=== PATIENT | female | born 1945 | race Caucasian/White ===

== ENCOUNTER 2016-06-28 11:14 | Emergency (ER) | payer MEDICARE ==
[~2016-06-28] VITALS: Ht 170.2 cm; Wt 61.5 kg
[~2016-06-28 11:14] MED LIST: ALPR0.5T99 PO; DARV PO; LEVO25TA36 PO; LORT5TAB PO; MEDR4PAK3 PO; VICO7.5T PO
[2016-06-28 11:29] VITALS: BP 118/68; PULSE 92; RESP 18; TEMP 98.6; O2SAT 94
[2016-06-28] MEDS ORDERED: SODIUM CHLOR 0.9% 1000 ML INJ 1,000 ML IV ONE ×2 (11:43→13:00)
[2016-06-28] MEDS ORDERED: ONDANSETRON HCL 4 MG/2 ML VIAL IVP ONE (11:45)
[2016-06-28] MEDS ORDERED: SODIUM CHLORIDE 0.9% FLUSH 10 ML FLUSH IVF PRN (11:45)
--- NOTE | 2016-06-28 11:56 | PD ---
HPI . Vomiting and diarrhea Chief Complaint: GI Complaint Time Seen by Provider: 11:43 Travel History International Travel<30 days: No Contact w/Intl Traveler<30days: No Traveled to known affect area: No History of Present Illness HPI Patient presents with a two-week history of vomiting and diarrhea. She reports approximately 4-5 episodes of emesis which always seems to occur at night. She reports about 6 episodes of diarrhea per day. She denies fever. She denies abdominal pain. She does report decreased urinary output and hesitancy. Denies recent antibiotic use. [id number]: Abdominal SEVERITY: 4-5 episodes of emesis and 6 episodes of diarrhea per day DURATION: 2 weeks TIMING: Continuous CONTEXT: No known sick exposures and no recent antibiotics ASSOCIATED SYMPTOMS: No associated fever or abdominal pain PFSH Past Medical History Anxiety: Yes High Cholesterol: Yes Cerebrovascular Accident: Yes (TIA X2) Diminished Hearing: No Genitourinary: Yes (HX OF FREQUENT UTI'S) Thyroid Disease: Yes Tetanus Vaccination: > 5 Years Influenza Vaccination: No ?: Not Past Surgical History Appendectomy: Yes Cholecystectomy: Yes Gynecologic Surgery: Yes (UTERINE PROLAPSE) Hysterectomy: Yes Social History Alcohol Use: No Tobacco Use: No Substance Use: No Allergies-Medications (Allergen,Severity, Reaction): Coded Allergies: No Known Allergies (Verified , 06/28/16) Reported Meds & Prescriptions Reported Meds & Active Scripts Active Reported Dilantin (Phenytoin Extended) 30 Mg Cap 90 Mg PO TID Percocet (Oxycodone-Acetaminophen) 7.5-325 mg Tab 1 Tab PO Q4H PRN Pravastatin 20 Mg Tab 20 Mg PO DAILY Synthroid (Levothyroxine Sodium) 100 Mcg Tab 100 Mcg PO DAILY Review of Systems Except as stated in HPI: all other systems reviewed are Neg General / Constitutional: No: Fever, Chills Gastrointestinal: Positive: Nausea, Vomiting, Diarrhea, No: Abdominal Pain Genitourinary: Positive: Decreased Urinary Output, Hesitancy Physical Exam Narrative GENERAL: Elderly woman who is in no acute distress. SKIN: Warm and dry. HEAD: Atraumatic. Normocephalic. EYES: Pupils equal and round. ENT: No nasal bleeding or discharge. Mucous membranes pink. Slightly dry. NECK: Trachea midline. Neck is supple. CARDIOVASCULAR: Regular rate and rhythm. Heart sounds are normal. RESPIRATORY: No accessory muscle use. Lungs are clear with full air movement throughout. GASTROINTESTINAL: Abdomen soft, non-tender, nondistended. MUSCULOSKELETAL: No obvious deformities. No edema. NEUROLOGICAL: Awake and alert. No obvious cranial nerve deficits. Motor grossly within normal limits. Normal speech. PSYCHIATRIC: Appropriate mood and affect; insight and judgment normal. Data Data Last Documented VS Vital Signs Date Time Temp Pulse Resp B/P Pulse Ox O2 Delivery O2 Flow Rate FiO2 06/28/16 13:43 62 18 107/46 96 Room Air 06/28/16 11:29 98.6 Orders Complete Blood Count With Diff (06/28/16 11:43) Comprehensive Metabolic Panel (06/28/16 11:43) Urinalysis - C+S If Indicated (06/28/16 11:43) Iv Access Insert/Monitor (06/28/16 11:43) Ecg Monitoring (06/28/16 11:43) Oximetry (06/28/16 11:43) Ondansetron Inj (Zofran Inj) (06/28/16 11:45) Sodium Chlor 0.9% 1000 Ml Inj (Ns 1000 M (06/28/16 11:43) Sodium Chloride 0.9% Flush (Ns Flush) (06/28/16 11:45) C Diff Toxin Pcr (06/28/16 11:43) Enteric Path (Stool) (06/28/16 11:43) Electrocardiogram (06/28/16 ) Troponin I (06/28/16 11:43) Urine Culture (06/28/16 11:50) Ceftriaxone Inj (Rocephin Inj) (06/28/16 12:45) Sodium Chlor 0.9% 1000 Ml Inj (Ns 1000 M (06/28/16 13:00) Labs Laboratory Tests Test 06/28/16 06/28/16 11:50 12:07 Urine Collection Type CLEAN CATCH Urine Color YELLOW Urine Turbidity CLOUDY Urine pH 6.0 Urine Specific [place] 1.016 Urine Protein 100 mg/dL Urine Glucose (UA) NEG mg/dL Urine Ketones NEG mg/dL Urine Occult Blood MOD Urine Nitrite POS Urine Bilirubin NEG Urine Leukocyte Esterase MOD Urine WBC INNUM /hpf Urine WBC Clumps FEW Urine Bacteria MANY /hpf Microscopic Urinalysis Comment CULTURE INDICATED White Blood Count 9.5 TH/MM3 Red Blood Count 4.06 MIL/MM3 Hemoglobin 10.5 GM/DL Hematocrit 32.9 % Mean Corpuscular Volume 81.2 FL Mean Corpuscular Hemoglobin 25.8 PG Mean Corpuscular Hemoglobin 31.8 % Concent Red Cell Distribution Width 15.9 % Platelet Count 419 TH/MM3 Mean Platelet Volume 8.4 FL Neutrophils (%) (Auto) 56.7 % Lymphocytes (%) (Auto) 25.9 % Monocytes (%) (Auto) 11.1 % Eosinophils (%) (Auto) 5.5 % Basophils (%) (Auto) 0.8 % Neutrophils # (Auto) 5.3 TH/MM3 Lymphocytes # (Auto) 2.5 TH/MM3 Monocytes # (Auto) 1.1 TH/MM3 Eosinophils # (Auto) 0.5 TH/MM3 Basophils # (Auto) 0.1 TH/MM3 CBC Comment DIFF FINAL Differential Comment Sodium Level 138 MEQ/L Potassium Level 2.9 MEQ/L Chloride Level 104 MEQ/L Carbon Dioxide Level 25.5 MEQ/L Anion Gap 9 MEQ/L Blood Urea Nitrogen 16 MG/DL Creatinine 1.40 MG/DL Estimat Glomerular Filtration 37 ML/MIN Rate Random Glucose 95 MG/DL Calcium Level 8.6 MG/DL Total Bilirubin 0.3 MG/DL Aspartate Amino Transf 11 U/L (AST/SGOT) Alanine Aminotransferase 17 U/L (ALT/SGPT) Alkaline Phosphatase 88 U/L Troponin I LESS THAN 0.02 NG/ML Total Protein 7.5 GM/DL Albumin 3.3 GM/DL MDM Medical Decision Making Medical Screen Exam Complete: Yes Emergency Medical Condition: Yes Medical Record Reviewed: Yes (patient's only medical issues have been a previous concussion and C3 fracture and lumbago.) Interpretation(s) EKG shows a sinus rhythm with a ventricular rate of 73. She has some diffuse downsloping of her ST segments. Unfortunately, she does not have any old EKGs for comparison. Differential Diagnosis Differential diagnosis of diarrhea includes but is not limited to early enteritis, bacterial enteritis, antibiotic induced diarrhea, irritable bowel syndrome Narrative Course Patient presents for evaluation and treatment of vomiting and diarrhea which has been ongoing for the last 2 weeks. She will be hydrated while awaiting her workup. CBC & BMP Diagram 06/28/16 12:07 Cardiac enzymes are negative. UA shows UTI. Diagnosis Primary Impression: Vomiting and diarrhea Additional Impression: UTI (urinary tract infection) Qualified Code: N30.00 - Acute cystitis without hematuria Patient Instructions: General Instructions, Urinary Tract Infection in Women ( DC) Scripts Ondansetron Odt (Zofran Odt)4 Mg Tab4 Mg SL Q6HR PRN (Nausea/Vomiting) #30 TAB Ref 0 Prov:Prema Higuera MD 06/28/16 Cephalexin (Keflex)500 Mg [id number] Mg PO Q8H #30 CAP Ref 0 Prov:Prema Higuera MD 06/28/16 Disposition: 01 DISCHARGE HOME Condition: Stable Prema Higuera MD Jun 28, 2016 11:56
[2016-06-28 12:11] LABS: GLUCOSE,URINE NEG (NEG); KETONE, URINE NEG (NEG)
[2016-06-28 12:14] LABS: AUTOMATED NEUTROPHIL # 5.3 TH/MM3 (1.8-7.7); BASOPHIL # 0.1 TH/MM3 (0-0.2); BASOPHIL % 0.8 % (0.0-2.0); EOSINOPHIL # 0.5 TH/MM3 (0-0.4); EOSINOPHIL % 5.5 % (0.0-4.0); HEMATOCRIT 32.9 % (35.0-46.0); HEMO FLAGS DIFF FINAL; LYMPH % 25.9 % (9.0-44.0); LYMPHOCYTE # 2.5 TH/MM3 (1.0-4.8); MEAN CELL VOLUME 81.2 FL (80.0-100.0); MEAN CORPUSCULAR HEMOGLOBIN 25.8 PG (27.0-34.0); MEAN CORPUSCULAR HGB CONC 31.8 % (32.0-36.0); MONO % 11.1 % (0.0-8.0); NEUT % 56.7 % (16.0-70.0); PLATELET COUNT 419 TH/MM3 (150-450); RED BLOOD COUNT 4.06 MIL/MM3 (4.00-5.30); RED CELL DISTRIBUTION WIDTH 15.9 % (11.6-17.2); WHITE BLOOD COUNT 9.5 TH/MM3 (4.0-11.0)
[2016-06-28 12:19] LABS: BLOOD, URINE MOD (NEG); NITRITE,URINE POS (NEG)
[2016-06-28 12:21] LABS: METHOD OF COLLECTION CLEAN CATCH; URINE COLOR YELLOW (YELLW/STRAW)
[2016-06-28 12:24] LABS: WBC, URINE INNUM /hpf (0-5)
[2016-06-28 12:25] LABS: BACTERIA, URINE MANY /hpf; COMMENT (UR) CULTURE INDICATED; CULTURE IF INDICATED CULTURE INDICATED
[2016-06-28 12:26] VITALS: O2SAT 94
[2016-06-28] MEDS ORDERED: cefTRIAXone INJ 1,000 MG in SODIUM CHLORIDE 0.9% INJ 100 ML IV ONE (12:45)
[2016-06-28 12:57] LABS: ALKALINE PHOSPHATASE 88 U/L (45-117); ALT (GPT) 17 U/L (10-53); ANION GAP 9 MEQ/L (5-15); AST (GOT) 11 U/L (15-37); BICARBONATE 25.5 MEQ/L (21.0-32.0); BLOOD UREA NITROGEN 16 MG/DL (7-18); CHLORIDE 104 MEQ/L (98-107); GLOMERULAR FILTRATION RATE 37 ML/MIN (>89); SODIUM (NA) 138 MEQ/L (136-145); TOTAL BILIRUBIN ADULT 0.3 MG/DL (0.2-1.0)
[2016-06-28 12:58] LABS: POTASSIUM 2.9 MEQ/L (3.5-5.1)
[2016-06-28 13:43] VITALS: BP 107/46; PULSE 62; RESP 18; O2SAT 96
[2016-06-28] MEDS ORDERED: DILA30CA PO (13:52)
[2016-06-28] MEDS ORDERED: PRAV20TA2 PO (13:52)
[2016-06-28] MEDS ORDERED: PERC7.5T13 PO (13:52)
[2016-06-28] MEDS ORDERED: LEVO.1 PO (13:52)
[2016-06-28] MEDS ORDERED: ZOFR4TAB3 SL (14:33)
[2016-06-28] MEDS ORDERED: CEPH-460 PO (14:33)
[2016-06-28] MEDS ORDERED: POTA-163 PO (14:35)
[2016-06-28] MEDS ORDERED: POTASSIUM CHLORIDE 20 MEQ CONTROLLED RELEASE TAB PO ONE (14:45)
[2016-06-28 14:50] VITALS: BP 110/47
[2016-06-28 17:13] LABS: C. DIFF EPI 027 PRESUMPTIVE NEGATIVE (NEGATIVE); C. DIFF TOXIN PCR NEGATIVE (NEGATIVE)
--- NOTE | 2016-06-29 16:51 | EKG ---
Date Performed: 06/28/2016 Time Performed: 11:52:20 PTAGE: 71 years EKG: Sinus rhythm Extensive ST-T changes may be due to myocardial ischemia Compared to prior tracing no significant ch danielle Abnormal ECG PREVIOUS TRACING : 02/12/1997 14.37 DOCTOR: Kang Bolton Interpretating Date/Time 06/29/2016 16:49:55
== END 2016-06-28 16:26 | disposition home or self-care (01) ==
LOC: PHED 11:14
DX: A02.0 Salmonella enteritis (principal); R11.10 Vomiting, unspecified; N30.00 Acute cystitis without hematuria; B96.20 Unspecified Escherichia coli [E. coli] as the cause of diseases classified elsewhere; R94.31 Abnormal electrocardiogram [ECG] [EKG]
CPT/HCPCS: 80053; 81001; 84484; 85025; 87077; 87086; 87186; 87493; 87506; 93005; 96361; 96365; 96375; 99284; J0696; J2405; J7030

== ENCOUNTER 2016-12-11 15:09 | Inpatient (IN) | payer MEDICARE ==
[~2016-12-11] VITALS: Ht 170.2 cm; Wt 72.2 kg
[2016-12-11] VITALS (10 sets, daily range): BP systolic 122–206; BP diastolic 68–97; PULSE 66–98; RESP 16–20; TEMP 98.1–98.9; O2SAT 93–96
[~2016-12-11 15:09] MED LIST changes: -ALPR0.5T99 PO; +CEPH-460 PO; -DARV PO; +DILA30CA PO; +LEVO.1 PO; -LEVO25TA36 PO; -LORT5TAB PO; -MEDR4PAK3 PO; +PERC7.5T13 PO; +POTA-163 PO; +PRAV20TA2 PO; -VICO7.5T PO; +ZOFR4TAB3 SL
[2016-12-11] MEDS ORDERED: HYDR-3583 PO (16:11)
[2016-12-11] MEDS ORDERED: SODIUM CHLOR 0.9% 1000 ML INJ 1,000 ML IV SCH (16:14)
[2016-12-11] MEDS ORDERED: MORPHINE SULFATE 4 MG/ML INJ IV PUSH ONE (16:15)
[2016-12-11] MEDS ORDERED: ASPIRIN 81 MG CHEW TAB PO ONE (16:15)
[2016-12-11] MEDS ORDERED: ONDANSETRON HCL 4 MG/2 ML VIAL IVP ONE (16:15)
[2016-12-11] MEDS ORDERED: ASPI81TA11 PO (16:15)
[2016-12-11] MEDS ORDERED: SODIUM CHLORIDE 0.9% FLUSH 10 ML FLUSH IV FLUSH PRN ×2 (16:15→18:30)
[2016-12-11 16:33] LABS: BASOPHIL # 0.1 TH/MM3 (0-0.2); BASOPHIL % 0.6 % (0.0-2.0); EOSINOPHIL # 0.2 TH/MM3 (0-0.4); EOSINOPHIL % 2.3 % (0.0-4.0); HEMATOCRIT 30.6 % (35.0-46.0); HEMO FLAGS AUTO DIFF; LYMPH % 31.2 % (9.0-44.0); LYMPHOCYTE # 3.1 TH/MM3 (1.0-4.8); MEAN CORPUSCULAR HEMOGLOBIN 24.6 PG (27.0-34.0); MEAN CORPUSCULAR HGB CONC 31.9 % (32.0-36.0); MONO % 7.1 % (0.0-8.0); NEUT % 58.8 % (16.0-70.0); PLATELET COUNT 464 TH/MM3 (150-450); RED BLOOD COUNT 3.97 MIL/MM3 (4.00-5.30); RED CELL DISTRIBUTION WIDTH 15.8 % (11.6-17.2); WHITE BLOOD COUNT 10.1 TH/MM3 (4.0-11.0)
[2016-12-11] MEDS: NITROGLYCERIN 0.4 MG SL 25 TABS/BTL SL SCH ×3 (16:33→16:43)
[2016-12-11 16:34] LABS: BLOOD, URINE NEG (NEG); GLUCOSE,URINE NEG (NEG); KETONE, URINE NEG (NEG); NITRITE,URINE NEG (NEG)
[2016-12-11 16:41] LABS: CHLORIDE 103 MEQ/L (98-107); POTASSIUM 3.3 MEQ/L (3.5-5.1); SODIUM (NA) 137 MEQ/L (136-145)
[2016-12-11 16:43] LABS: METHOD OF COLLECTION CLEAN CATCH; URINE COLOR STRAW (YELLW/STRAW)
[2016-12-11 16:44] LABS: BACTERIA, URINE MOD /hpf; COMMENT (UR) CULTURE INDICATED; CULTURE IF INDICATED CULTURE INDICATED; RBC, URINE 0-3 /hpf (0-3)
[2016-12-11 16:45] LABS: ANION GAP 7 MEQ/L (5-15); BICARBONATE 26.9 MEQ/L (21.0-32.0)
[2016-12-11 16:46] LABS: BLOOD UREA NITROGEN 7 MG/DL (7-18)
[2016-12-11 16:48] LABS: ALT (GPT) 21 U/L (10-53); AST (GOT) 15 U/L (15-37); PROTHROMBIN TIME - PATIENT 10.5 SEC (9.8-11.6)
[2016-12-11 16:49] LABS: GLOMERULAR FILTRATION RATE 61 ML/MIN (>89)
[2016-12-11 16:50] LABS: TOTAL BILIRUBIN ADULT 0.5 MG/DL (0.2-1.0)
[2016-12-11 16:51] LABS: ALKALINE PHOSPHATASE 79 U/L (45-117)
[2016-12-11 16:55] LABS: CREATINE KINASE 63 U/L (26-192)
--- NOTE | 2016-12-11 16:57 | PD ---
HPI Chief Complaint: Abdominal Pain Time Seen by Provider: 16:10 Travel History International Travel<30 days: No Contact w/Intl Traveler<30days: No Traveled to known affect area: No History of Present Illness HPI 71-year-old female here for evaluation of abdominal pain and bloating, diarrhea , and chest pain. The patient was diagnosed with food poisoning couple weeks ago. She reports that her pain started 2 days ago and is located in her upper abdomen, described as a pressure. Today the pain was in her chest him also described as a pressure. She denies history of cardiac disease. No vomiting, however she feels nauseous. States that her stool is very loose. No recent antibiotic use. History of cholecystectomy, appendectomy, and hysterectomy. She denies fevers. No modifying factors to her chest pain. She does have some epigastric abdominal tenderness. PFSH Past Medical History Hx Anticoagulant Therapy: Yes (ASA) Anxiety: Yes High Cholesterol: Yes Cerebrovascular Accident: Yes (TIA X2) Diminished Hearing: No Genitourinary: Yes (HX OF FREQUENT UTI'S) Respiratory: Yes (PE AFTER SURGERY) Immunizations Current: Yes Thyroid Disease: Yes Past Surgical History Appendectomy: Yes Cholecystectomy: Yes Gynecologic Surgery: Yes (UTERINE PROLAPSE) Hysterectomy: Yes Social History Alcohol Use: No Tobacco Use: No Substance Use: No Allergies-Medications (Allergen,Severity, Reaction): Coded Allergies: metronidazole (Verified Allergy, Unknown, JEAN-PAULT FLORINA, 12/11/16) Uncoded Allergies: UNKNOWN PAIN / NAUSEA COMBO (Allergy, Unknown, 12/11/16) Reported Meds & Prescriptions Reported Meds & Active Scripts Active Reported Alprazolam 1 Mg Tab 1 Mg PO TID PRN Aspirin EC (Aspirin) 81 Mg Tabdr 81 Mg PO DAILY Hydrocodone-Acetaminophen 10-325 mg Tab 1 Tab PO 5 TIMES A DAY PRN Dilantin (Phenytoin Extended) 30 Mg Cap 90 Mg PO TID Pravastatin 20 Mg Tab 20 Mg PO DAILY Synthroid (Levothyroxine Sodium) 100 Mcg Tab 100 Mcg PO DAILY Review of Systems Except as stated in HPI: all other systems reviewed are Neg Physical Exam Narrative GENERAL: Well-developed, well-nourished, comfortable, no apparent distress. SKIN: Focused skin assessment warm/dry. HEAD: Atraumatic. Normocephalic. EYES: Pupils equal and round. No scleral icterus. No injection or drainage. ENT: Mucous membranes pink and moist. NECK: Trachea midline. No JVD. CARDIOVASCULAR: Regular rate and rhythm. Distal pulses brisk and equal bilaterally. RESPIRATORY: No accessory muscle use. Clear to auscultation. Breath sounds equal bilaterally. GASTROINTESTINAL: Abdomen soft, nondistended. Moderate epigastric tenderness without peritoneal signs. MUSCULOSKELETAL: No obvious deformities. No clubbing. No cyanosis. No edema. NEUROLOGICAL: Awake and alert. No obvious cranial nerve deficits. Motor grossly within normal limits. Normal speech. PSYCHIATRIC: Appropriate mood and affect; insight and judgment normal. Data Data Last Documented VS Vital Signs Date Time Temp Pulse Resp B/P (MAP) Pulse Ox O2 Delivery O2 Flow Rate FiO2 12/11/16 16:52 16 12/11/16 16:47 92 145/80 (101) 93 Room Air 12/11/16 15:14 98.1 Orders Orders Complete Blood Count With Diff (12/11/16 16:14) Comprehensive Metabolic Panel (12/11/16 16:14) Lipase (12/11/16 16:14) Lactic Acid (12/11/16 16:14) Prothrombin Time / Inr (Pt) (12/11/16 16:14) Act Partial Throm Time (Ptt) (12/11/16 16:14) Urinalysis - C+S If Indicated (12/11/16 16:14) Iv Access Insert/Monitor (12/11/16 16:14) Ecg Monitoring (12/11/16 16:14) Oximetry (12/11/16 16:14) Morphine Inj (Morphine Inj) (12/11/16 16:15) Ondansetron Inj (Zofran Inj) (12/11/16 16:15) Sodium Chlor 0.9% 1000 Ml Inj (Ns 1000 M (12/11/16 16:14) Sodium Chloride 0.9% Flush (Ns Flush) (12/11/16 16:15) Ckmb (Isoenzyme) Profile (12/11/16 16:14) D-Dimer (12/11/16 16:14) Troponin I (12/11/16 16:14) Chest, Single Ap (12/11/16 16:14) Aspirin Chew (Aspirin Chew) (12/11/16 16:15) Nitroglycerin Sl (Nitrostat Sl) (12/11/16 16:15) Urine Culture (12/11/16 16:10) Electrocardiogram (12/11/16 16:09) Ct Abd/Pel W Iv Contrast(Rout) (12/11/16 17:16) Iohexol 350 Inj (Omnipaque 350 Inj) (12/11/16 17:41) Alprazolam (Xanax) (12/11/16 18:30) Aspirin Ec (Ecotrin Ec) (12/12/16 09:00) Levothyroxine (Synthroid) (12/12/16 06:00) Phenytoin (Dilantin) (12/12/16 09:00) Pravastatin (Pravachol) (12/12/16 09:00) Labs Laboratory Tests Test 12/11/16 16:10 12/11/16 16:20 Urine Collection Type CLEAN CATCH Urine Color STRAW Urine Turbidity CLEAR Urine pH 6.0 Urine Specific [place] 1.004 Urine Protein NEG mg/dL Urine Glucose (UA) NEG mg/dL Urine Ketones NEG mg/dL Urine Occult Blood NEG Urine Nitrite NEG Urine Bilirubin NEG Urine Leukocyte Esterase SMALL Urine RBC 0-3 /hpf Urine WBC 6-8 /hpf Urine Squamous Epithelial Cells 6-8 /hpf Urine Bacteria MOD /hpf Microscopic Urinalysis Comment CULTURE INDICATED Urine Collection Time 16:10 White Blood Count 10.1 TH/MM3 Red Blood Count 3.97 MIL/MM3 Hemoglobin 9.8 GM/DL Hematocrit 30.6 % Mean Corpuscular Volume 77.0 FL Mean Corpuscular Hemoglobin 24.6 PG Mean Corpuscular Hemoglobin Concent 31.9 % Red Cell Distribution Width 15.8 % Platelet Count 464 TH/MM3 Mean Platelet Volume 8.1 FL Neutrophils (%) (Auto) 58.8 % Lymphocytes (%) (Auto) 31.2 % Monocytes (%) (Auto) 7.1 % Eosinophils (%) (Auto) 2.3 % Basophils (%) (Auto) 0.6 % Neutrophils # (Auto) 6.0 TH/MM3 Lymphocytes # (Auto) 3.1 TH/MM3 Monocytes # (Auto) 0.7 TH/MM3 Eosinophils # (Auto) 0.2 TH/MM3 Basophils # (Auto) 0.1 TH/MM3 CBC Comment AUTO DIFF Differential Comment AUTO DIFF CONFIRMED Prothrombin Time 10.5 SEC Prothromb Time International Ratio 1.0 RATIO Activated Partial Thromboplast Time 26.0 SEC D-Dimer Quantitative (PE/DVT) 0.49 MG/L FEU Blood Urea Nitrogen 7 MG/DL Creatinine 0.92 MG/DL Random Glucose 99 MG/DL Total Protein 8.4 GM/DL Albumin 3.9 GM/DL Calcium Level 8.9 MG/DL Alkaline Phosphatase 79 U/L Aspartate Amino Transf (AST/SGOT) 15 U/L Alanine Aminotransferase (ALT/SGPT) 21 U/L Total Bilirubin 0.5 MG/DL Sodium Level 137 MEQ/L Potassium Level 3.3 MEQ/L Chloride Level 103 MEQ/L Carbon Dioxide Level 26.9 MEQ/L Anion Gap 7 MEQ/L Estimat Glomerular Filtration Rate 61 ML/MIN Lactic Acid Level 1.5 mmol/L Total Creatine Kinase 63 U/L Troponin I LESS THAN 0.02 NG/ML Lipase 140 U/L MDM Medical Decision Making Medical Screen Exam Complete: Yes Emergency Medical Condition: Yes Differential Diagnosis Gastritis, peptic ulcer disease, pancreatitis, hepatobiliary disease, ACS, pneumothorax, pericarditis, PE, pneumonia, dissection Narrative Course Vital signs reviewed. CBC shows WBC 10.1, hemoglobin 9.8, hematocrit 30.6, platelets 464. CMP is essentially unremarkable. Lipase is 140. Cardiac enzymes are negative. Chest x-ray: No acute disease. CT abdomen pelvis: Status post cholecystectomy. Mildly nonspecific bowel gas pattern which could represent a mild ileus or gastroenteritis. Patient was given aspirin, morphine, and nitroglycerin which resolved her chest discomfort. She was made aware of all findings. She does report family history of cardiac disease. No known personal history of cardiac disease. She will be admitted to the chest pain center for further cardiac evaluation. Case discussed with hospitalist Dr. Gabriel who will admit the patient to his service. Diagnosis Primary Impression: Chest pain Qualified Codes: R07.9 - Chest pain, unspecified Additional Impression: Gastroenteritis Admitting Information Admitting Physician Requests: Raj Motley MD Dec 11, 2016 16:57
--- NOTE | 2016-12-11 17:04 | RADRPT ---
EXAM DATE/TIME: 12/11/2016 16:49 [facility] COMPARISON: No previous studies available for comparison. INDICATIONS : Chest pain and short of breath. MEDICAL HISTORY : Chronic obstructive pulmonary disease. MVP SURGICAL HISTORY : None. ENCOUNTER: Initial ACUITY: 1 day PAIN SCORE: 2/10 LOCATION: Bilateral chest FINDINGS: A single view of the chest demonstrates the lungs to be symmetrically aerated without evidence of mas s, infiltrate or effusion. The cardiomediastinal contours are unremarkable. Osseous structures are intact. Atherosclerotic changes are noted in the aorta. There overlying electrocardiogram leads. CONCLUSION: No acute disease. Tripp Barry MD on December 11, 2016 at 17:02 Board Certified Radiologist. This report was verified electronically.
[2016-12-11 17:22] LABS: SCAN/DIFF AUTO DIFF CONFIRMED
[2016-12-11] MEDS ORDERED: IOHEXOL 350 MG/ML 10 ML VIAL (for RAD DIAG) IVCONTRAST ONE (17:41)
--- NOTE | 2016-12-11 17:55 | RADRPT ---
EXAM DATE/TIME: 12/11/2016 17:35 [facility] COMPARISON: No previous studies available for comparison. INDICATIONS : Upper abdominal pain for two days. IV CONTRAST: 85 cc Omnipaque 350 (iohexol) IV ORAL CONTRAST: No oral contrast ingested. RADIATION DOSE: 11.61 CTDIvol (mGy) MEDICAL HISTORY : Cerebrovascular disease. SURGICAL HISTORY : Appendectomy. Cholecystectomy.Hysterectomy. ENCOUNTER: Initial ACUITY: 2 days PAIN SCALE: 5/10 LOCATION: upper quadrant abdomen TECHNIQUE: Volumetric scanning of the abdomen and pelvis was performed. Using automated exposure control and ad justment of the mA and/or kV according to patient size, radiation dose was kept as low as reasonably achievable to obtain optimal diagnostic quality images. DICOM format image data is available electro nically for review and comparison. FINDINGS: LOWER LUNGS: The visualized lower lungs are clear. LIVER: Homogeneous density with a small cyst in the dome of the liver. There is no dilation of the biliary t ree. Status post cholecystectomy. SPLEEN: Normal size without lesion. PANCREAS: Within normal limits. KIDNEYS: Normal in size and shape. There is no mass, stone or hydronephrosis. ADRENAL GLANDS: Within normal limits. VASCULAR: There is no aortic aneurysm. BOWEL/MESENTERY: No oral contrast was given limiting the sensitivity. There are multiple loops of non-dilated air cont aining small bowel with several small air-fluid levels. There is no free intraperitoneal air or fluid . ABDOMINAL WALL: Within normal limits. RETROPERITONEUM: There is no lymphadenopathy. BLADDER: No wall thickening or mass. REPRODUCTIVE: Within normal limits. INGUINAL: There is no lymphadenopathy or hernia. MUSCULOSKELETAL: There is an old compression fracture deformity of the L3 vertebral body. CONCLUSION: 1. Status post cholecystectomy. 2. Mildly nonspecific bowel gas pattern which could represent a mild ileus or gastroenteritis. Tripp Barry MD on December 11, 2016 at 17:50 Board Certified Radiologist. This report was verified electronically.
[2016-12-11] MEDS ORDERED: ALPR1TAB3 PO (18:14)
[2016-12-11] MEDS ORDERED: NITROGLYCERIN 0.4 MG SL 25 TABS/BTL SL PRN (18:30)
[2016-12-11] MEDS ORDERED: ONDANSETRON HCL 4 MG/2 ML VIAL IV PUSH PRN (18:30)
[2016-12-11] MEDS: ACETAMINOPHEN/HYDROcodone 325 MG/7.5 MG TAB PO PRN (19:47)
[2016-12-11 20:51] LABS: CREATINE KINASE 49 U/L (26-192)
[2016-12-11] MEDS: FAMOTIDINE 20 MG TAB PO SCH (21:30)
[2016-12-11] MEDS: HEPARIN SODIUM - SQ 10,000 UNITS/ML VIAL SQ SCH (21:30)
[2016-12-11] MEDS: SODIUM CHLORIDE 0.9% FLUSH 10 ML FLUSH IV FLUSH SCH (21:30)
[2016-12-11] MEDS: ALPRAZolam 1 MG TAB PO PRN (21:30)
[2016-12-11 23:26] LABS: CREATINE KINASE 49 U/L (26-192)
[2016-12-12] VITALS (7 sets, daily range): BP systolic 138–190; BP diastolic 73–84; PULSE 70–81; RESP 16–20; TEMP 96.3–98.6; O2SAT 93–96
[2016-12-12] MEDS: ACETAMINOPHEN/HYDROcodone 325 MG/7.5 MG TAB PO PRN ×3 (02:54→16:42)
[2016-12-12] MEDS: LEVOTHYROXINE SODIUM 100 MCG TAB PO SCH (05:38)
[2016-12-12] MEDS: HEPARIN SODIUM - SQ 10,000 UNITS/ML VIAL SQ SCH ×2 (08:00→20:42)
[2016-12-12] MEDS: PRAVASTATIN SOD 20 MG TAB PO SCH (09:00)
[2016-12-12] MEDS: FAMOTIDINE 20 MG TAB PO SCH ×2 (09:00→20:42)
[2016-12-12] MEDS ORDERED: PHENYTOIN SODIUM 30 MG CAP PO SCH (09:00)
[2016-12-12] MEDS: SODIUM CHLORIDE 0.9% FLUSH 10 ML FLUSH IV FLUSH SCH ×2 (09:47→20:42)
[2016-12-12] MEDS: ASPIRIN EC 81 MG TABEC PO SCH (09:48)
[2016-12-12] MEDS: ALPRAZolam 1 MG TAB PO PRN ×2 (09:48→21:55)
[2016-12-12] MEDS ORDERED: CITA20TA4 PO (09:56)
--- NOTE | 2016-12-12 12:29 | HHI.HP ---
[facility] Primary Care Physician Emir Ureña MD Admission Diagnosis Chest Pain, Gastroenteritis Diagnoses: (1) Abdominal distention Diagnosis: Principal (2) Chest pain Diagnosis: Principal (3) Gastroenteritis Diagnosis: Principal (4) Accelerated hypertension Chief Complaint: Abdominal distention Travel History International Travel<30 Days: No Contact w/Intl Traveler <30 Da: No Traveled to Known Affected Are: No History of Present Illness Written by Akbar Clark, acting as scribe for Dr. Graham on 12/12/16 at 12: 14. 71-year-old female with known history of hypertension, hyperlipidemia , TIA, hypothyroidism who presented to hospital because of rather long history of abdominal distention. Patient states that in May she had an episode of food poisoning from [place] in which the patient states that she has never recovered from that. Ever since then she has had constant nausea, intermittent abdominal distention, 40 pound weight gain. Decreased appetite, however she does eat 4 bags of popcorn daily. 2 weeks ago she started developing abdominal discomfort again to include bloating, distention, nausea, vomiting, diarrhea. She indicates the pain is 6/10 on a pain scale. She went to her primary medical doctor who sent her for laboratory studies which were unremarkable. Because the patient continued to have abdominal pain, distention, which started pushing up on her diaphragm causing her to have chest discomfort which she describes as a tightness and pressure sensation from the left side to the right side. States that is 3/10 on a pain scale without any diaphoresis, shortness of breath, dyspnea, lightheadedness, radiation of discomfort. Patient states that the pain completely resolved after she was given morphine and nitroglycerin emergency department. Also the same time as noticed that the patient did have accelerated blood pressure 206/92. She had evaluation done emergency department with CT scan that did indicate gastroenteritis with possible ileus. Because the patient had chest discomfort with increased risk factors, it was recommended by the ER physician that the patient be evaluated. Upon seeing the patient today she is no longer have any vomiting, diarrhea that has resolved. She has passed gas one time today. Discussed with her replenishment merchandising associate Dr. Henriquez her presenting symptoms, findings thus far and he indicated no need to pursue any cardiac stress testing at this time. He would recommend GI evaluation and discharge with outpatient follow-up. Review of Systems Constitutional: COMPLAINS OF: Weight gain (40 pound) Cardiovascular: COMPLAINS OF: Chest pain, Palpitations Gastrointestinal: COMPLAINS OF: Abdominal pain, Diarrhea, Nausea, Vomiting Except as stated in HPI: all other systems reviewed are Neg Past Family Social History Past Medical History Hypertension Hyperlipidemia TIA History myocardial infarction Hypothyroidism Past Surgical History Appendectomy Cholecystectomy Endoscopy Cardiac catheterization with clean coronary arteries Hysterectomy Teeth extraction Uterine prolapse Reported Medications Reported Meds & Active Scripts Active Reported Citalopram (Citalopram Hydrobromide) 20 Mg Tab 20 Mg PO DAILY Alprazolam 1 Mg Tab 1 Mg PO TID PRN Aspirin EC (Aspirin) 81 Mg Tabdr 81 Mg PO DAILY Hydrocodone-Acetaminophen 10-325 mg Tab 1 Tab PO 5 TIMES A DAY PRN Diltiazem 240 mg daily Pravastatin 20 Mg Tab 20 Mg PO DAILY Synthroid (Levothyroxine Sodium) 100 Mcg Tab 100 Mcg PO DAILY Allergies: Coded Allergies: metronidazole (Verified Allergy, Unknown, DOESNT RMEMBER, 12/11/16) Uncoded Allergies: UNKNOWN PAIN / NAUSEA COMBO (Allergy, Unknown, 12/11/16) Family History Reviewed is significant for mother at age 70 from lung cancer, father is , however family history is unknown, sister with history of breast cancer, son with Crohn's disease Social History Patient quit smoking 2 years ago, prior to that she smoked one pack of service a day since she was 21 years old. Denies any alcohol or illicit drugs Physical Exam Vital Signs Vital Signs Date Time Temp Pulse Resp B/P (MAP) Pulse Ox O2 Delivery O2 Flow Rate FiO2 12/12/16 10:47 18 12/12/16 08:00 96.3 71 20 190/82 (118) 96 12/12/16 00:00 97.7 70 18 138/78 (98) 95 12/11/16 23:00 66 12/11/16 20:00 98.1 76 20 181/79 (113) 96 12/11/16 19:36 98.9 83 16 140/69 (92) 94 Room Air 12/11/16 18:13 72 16 153/74 (100) 96 Room Air 12/11/16 17:24 70 16 159/68 (98) 96 Room Air 12/11/16 16:52 16 12/11/16 16:47 92 16 145/80 (101) 93 Room Air 12/11/16 16:43 16 12/11/16 16:42 87 16 158/79 (105) 93 Room Air 12/11/16 16:37 94 16 206/92 (130) 95 Room Air 12/11/16 16:00 16 96 Room Air 12/11/16 15:14 98.1 98 20 122/97 (105) 96 Physical Exam GENERAL: Well-developed, well-nourished, in no acute distress. alert and orientated HEENT: Head is normocephalic without any lesions or masses noted. Facial features are symmetric. Eyes: Pupils equal round reactive to light. Extraocular muscles are intact. Conjunctivae were clear. Oropharyngeal: Pharynx without any erythema edema. Tongue is midline without deviation. Buccal mucosa is moist without any masses or lesions NECK: Supple without any masses. Trachea midline no deviation. No JVD, no bruits are appreciated CARDIAC: Regular rhythm, regular rate. S1/S2 are heard. No murmurs gallops or rubs. LUNGS: Clear to auscultation bilaterally. No wheeze, rhonchi or rales. No use of accessory muscles on inspiration or expiration. ABDOMEN: Soft, nontender. Nondistended. Bowel sounds heard in all 4 quadrants. No organomegaly or masses. Negative rebound, negative guarding EXTREMITIES: No edema, pulses are equal bilaterally. No cyanosis or clubbing NEUROLOGY: Mood and affect appear appropriate. Cranial nerves II through XII grossly intact. Muscle strength 5/5 in upper and lower extremities bilaterally. Deep tendon reflexes are 2+ in upper and lower extremities bilaterally. Laboratory Laboratory Tests Test 12/11/16 16:10 12/11/16 16:20 12/11/16 19:51 12/11/16 22:30 Urine Collection Type CLEAN CATCH Urine Color STRAW Urine Turbidity CLEAR Urine pH 6.0 Urine Specific [place] 1.004 Urine Protein NEG Urine Glucose (UA) NEG Urine Ketones NEG Urine Occult Blood NEG Urine Nitrite NEG Urine Bilirubin NEG Urine Leukocyte Esterase SMALL Urine RBC 0-3 Urine WBC 6-8 Urine Squamous Epithelial Cells 6-8 Urine Bacteria MOD Microscopic Urinalysis Comment CULTURE INDICATED Urine Collection Time 16:10 White Blood Count 10.1 Red Blood Count 3.97 Hemoglobin 9.8 Hematocrit 30.6 Mean Corpuscular Volume 77.0 Mean Corpuscular Hemoglobin 24.6 Mean Corpuscular Hemoglobin Concent 31.9 Red Cell Distribution Width 15.8 Platelet Count 464 Mean Platelet Volume 8.1 Neutrophils (%) (Auto) 58.8 Lymphocytes (%) (Auto) 31.2 Monocytes (%) (Auto) 7.1 Eosinophils (%) (Auto) 2.3 Basophils (%) (Auto) 0.6 Neutrophils # (Auto) 6.0 Lymphocytes # (Auto) 3.1 Monocytes # (Auto) 0.7 Eosinophils # (Auto) 0.2 Basophils # (Auto) 0.1 CBC Comment AUTO DIFF Differential Comment AUTO DIFF CONFIRMED Prothrombin Time 10.5 Prothromb Time International Ratio 1.0 Activated Partial Thromboplast Time 26.0 D-Dimer Quantitative (PE/DVT) 0.49 Blood Urea Nitrogen 7 Creatinine 0.92 Random Glucose 99 Total Protein 8.4 Albumin 3.9 Calcium Level 8.9 Alkaline Phosphatase 79 Aspartate Amino Transf (AST/SGOT) 15 Alanine Aminotransferase (ALT/SGPT) 21 Total Bilirubin 0.5 Sodium Level 137 Potassium Level 3.3 Chloride Level 103 Carbon Dioxide Level 26.9 Anion Gap 7 Estimat Glomerular Filtration Rate 61 Lactic Acid Level 1.5 Total Creatine Kinase 63 49 49 Troponin I LESS THAN 0.02 LESS THAN 0.02 LESS THAN 0.02 Lipase 140 Date/Time Source Procedure Growth Status 12/11/16 16:10 Urine Clean Catch Urine Culture - Preliminary Gram Negative Brien Resulted Result Diagram: 12/11/16 1620 12/11/16 1620 Imaging Last Impressions Abdomen/Pelvis CT 12/11/16 1716 Signed Impressions: Service Date/Time: Sunday, December 11, 2016 17:35 - CONCLUSION: 1. Status post cholecystectomy. 2. Mildly nonspecific bowel gas pattern which could represent a mild ileus or gastroenteritis. Tripp Barry MD Chest X-Ray 12/11/16 1614 Signed Impressions: Service Date/Time: Sunday, December 11, 2016 16:49 - CONCLUSION: No acute disease. Tripp Barry MD Caprini VTE Risk Assessment Caprini VTE Risk Assessment: Mod/High Risk (score >= 2) Caprini Risk Assessment Model Point Value = 1 Point Value = 2 Point Value = 3 Point Value = 5 Age 41-60 Minor surgery BMI > 25 kg/m2 Swollen legs Varicose veins or History of unexplained or recurrent spontaneous Oral contraceptives or hormone replacement Sepsis (< 1 month) Serious lung disease, including pneumonia (< 1 month) Abnormal pulmonary function Acute myocardial infarction Congestive heart failure (< 1 month) History of inflammatory bowel disease Medical patient at bed rest Age 61-74 Arthroscopic surgery Major open surgery (> 45 min) Laparoscopic surgery (> 45 min) Malignancy Confined to bed (> 72 hours) Immobilizing plaster cast Central venous access Age >= 75 History of VTE Family history of VTE Factor V Leiden Prothrombin [id number] Lupus anticoagulant Anticardiolipin antibodies Elevated serum homocysteine Heparin-induced thrombocytopenia Other congenital or acquired thrombophilia Stroke (< 1 month) Elective arthroplasty Hip, pelvis, or leg fracture Acute spinal cord injury (< 1 month) Prophylaxis Regimen Total Risk Factor Score Risk Level Prophylaxis Regimen 0-1 Low Early ambulation 2 Moderate Order ONE of the following: *Sequential Compression Device (SCD) *Heparin 5000 units SQ BID 3-4 Higher Order ONE of the following medications: *Heparin 5000 units SQ TID *Enoxaparin/Lovenox 40 mg SQ daily (WT < 150 kg, CrCl > 30 mL/min) *Enoxaparin/Lovenox 30 mg SQ daily (WT < 150 kg, CrCl > 10-29 mL/min) *Enoxaparin/Lovenox 30 mg SQ BID (WT < 150 kg, CrCl > 30 mL/min) AND/OR *Sequential Compression Device (SCD) 5 or more Highest Order ONE of the following medications: *Heparin 5000 units SQ TID (Preferred with Epidurals) *Enoxaparin/Lovenox 40 mg SQ daily (WT < 150 kg, CrCl > 30 mL/min) *Enoxaparin/Lovenox 30 mg SQ daily (WT < 150 kg, CrCl > 10-29 mL/min) *Enoxaparin/Lovenox 30 mg SQ BID (WT < 150 kg, CrCl > 30 mL/min) AND *Sequential Compression Device (SCD) Assessment and Plan Problem List: (1) Abdominal distention ICD Code: R14.0 - Abdominal distension (gaseous) Plan: 71-year-old female who presented with acute on chronic abdominal discomfort, abdominal bloating, nausea, vomiting, diarrhea. CT scan does indicate gastroenteritis with possible ileus. Gi consult appreciated,and Patient continued on Pepcid. Continue pain control (2) Chest pain ICD Code: R07.9 - Chest pain, unspecified Status: Acute Plan: Patient with increased risk factors to include age, hypertension, hyperlipidemia, history of myocardial infarction. Patient has been ruled out for acute coronary event with serial cardiac enzymes which have remained negative, serial EKGs shows sinus rhythm without any changes. Discussed with Dr. Henriquez, who indicated that he does not feel this is cardiac related. States that she has been ruled out for acute coronary event at this time. Would recommend GI workup prior to discharge. Recommended following up in his office for further evaluation (3) Accelerated hypertension ICD Code: I10 - Essential (primary) hypertension Plan: Likely secondary to pain, blood pressure improved after the use of nitroglycerin, morphine. Patient's replenishment merchandising associate recommended continue her home medication monitoring her blood pressure. Assessment and Plan Patient's other conditions to include hyperlipidemia, hypothyroidism, history TIA: We'll continue her home medications DVT prevention: Subcutaneous heparin Discussed Condition With Patient, nursing staff, cardiology, gi Medical Decision Making Impression and Plan This note was transcribed by [email or web address] tomlin. I, Dr. Judit Graham personally performed the history, physical exam, and medical decision making; and confirmed the accuracy of the information in the transcribed note. Authenticated by Dr. Judit Graham on 12/12/16 at 12:38. Patient seen and evaluated as above. Discussed with GI. Patient has initially refused endoscopy both upper and lower but is now agreeable. npo at midnight Problem Qualifiers (1) Chest pain: Qualified Codes: R07.9 - Chest pain, unspecified Akbar Clark Dec 12, 2016 12:29 Judit Graham MD Dec 12, 2016 12:39
[2016-12-12] MEDS ORDERED: PEG (High)/E-LYTE SOLN 4000 ML BTL PO ONE (12:45)
[2016-12-12] MEDS: MORPHINE SULFATE 4 MG/ML INJ IV PUSH PRN ×2 (13:43→20:42)
[2016-12-12] MEDS ORDERED: DILT1TAB4 PO (14:04)
--- NOTE | 2016-12-12 16:35 | MB ---
cc: ADRIANA BRADSHAW HASSAN M.D. DAVIS, MONICA DATE OF CONSULTATION: 12/12/2016 REASON FOR CONSULTATION: Abdominal distension, nausea, vomiting. HISTORY OF PRESENT ILLNESS: Ms. Hagen is a 71-year-old lady who states since May she has been having issues with abdominal pain, distension and bloating. She says she has some diarrhea off and on. She says a month ago she was diagnosed with gastroenteritis on some blood work up. She is unable to give any further details regarding this. She says she got progressively more distended, started to gain some weight and this is what brought her to the hospital. CT of the abdomen and pelvis reveals nonspecific gas in the intestines, otherwise unremarkable. REVIEW OF SYSTEMS: No diarrhea at this time. The patient has weight gain, abdominal distension and bloating. PAST MEDICAL HISTORY: 1. Hypertension. 2. Hyperlipidemia. 3. TIA. 4. History of VA. 5. Hypothyroidism. PAST SURGICAL HISTORY: 1. Appendectomy. 2. Cholecystectomy. 3. Cardiac catheterization. 4. Hysterectomy. MEDICATIONS ON ADMISSION: 1. Citalopram. 2. Alprazolam. 3. Aspirin. 4. Hydrocodone. 5. Diltiazem. 6. Pravastatin. 7. Synthroid. ALLERGIES: METRONIDAZOLE FAMILY HISTORY: Noncontributory. SOCIAL HISTORY: The patient is a smoker, quit about two years ago. No alcohol reported. PHYSICAL EXAMINATION: Reveals a well-nourished lady in no apparent distress. HEAD AND NECK: Anicteric sclera. CHEST: Bilateral air entry with rales. ABDOMEN: Soft, slightly distended, tenderness to deep palpation in the right lower quadrant. No guarding, no rigidity. DOUGHNUT FRYER: Nonfocal. LABORATORY DATA: Reveal white cell count of 10.1, hemoglobin 9.8, liver functions are normal. Lipase 140. IMAGING STUDIES: CT of the abdomen and pelvis reveals some nonspecific gas distension in the intestines, status post cholecystectomy. IMPRESSION: Gastroenteritis versus irritable bowel syndrome, versus inflammatory bowel disease RECOMMENDATIONS: EGD, colonoscopy discussed with the patient in detail. She does not wish to have these procedures done. I have explained to her that so far her blood work and her CT scan has pretty much been unremarkable, and endoscopy would be the next logical test. At this time she is not agreeable to proceed. I will advance her diet. Continue to monitor clinically. If she has a bowel movement, obviously would recommend stool studies. Thank you for the referral. MD KINGA Hood/UMA /12:34 PM /4:22 PM
[2016-12-12] MEDS: DILTIAZEM-CD 240 MG CAP ER PO SCH (16:42)
--- NOTE | 2016-12-12 21:28 | EKG ---
Date Performed: 12/11/2016 Time Performed: 22:19:54 PTAGE: 71 years EKG: Sinus rhythm NORMAL ECG PREVIOUS TRACING : 12/11/2016 20.05 Compared to prior tracing no significant change DOCTOR: Madeline Webb Interpretating Date/Time 12/12/2016 21:26:59
--- NOTE | 2016-12-12 21:35 | EKG ---
Date Performed: 12/11/2016 Time Performed: 20:05:21 PTAGE: 71 years EKG: Sinus rhythm NORMAL ECG PREVIOUS TRACING : 12/11/2016 16.09 Compared to prior tracing no significant change DOCTOR: Madeline Webb Interpretating Date/Time 12/12/2016 21:33:58
--- NOTE | 2016-12-12 21:46 | EKG ---
Date Performed: 12/11/2016 Time Performed: 16:09:37 PTAGE: 71 years EKG: Sinus rhythm MILD ST CHANGES Compared to the PREVIOUS TRACING ST changes less prominent DOCTOR: Madeline Webb Interpretating Date/Time 12/12/2016 21:45:04
[2016-12-13] VITALS: BP 126/65; PULSE 75; RESP 16; TEMP 98.6; O2SAT 90
[2016-12-13] MEDS ORDERED: LACTATED RINGER'S 1000 ML IV PRN (02:30)
[2016-12-13] MEDS ORDERED: POVIDONE IODINE 5% (ANTISEPSIS KIT) 4 APPLICATIONS EACH NARE PRN (02:30)
[2016-12-13] MEDS: LEVOTHYROXINE SODIUM 100 MCG TAB PO SCH (05:15)
[2016-12-13] MEDS: ALPRAZolam 1 MG TAB PO PRN ×3 (07:29→21:20)
[2016-12-13 08:00] VITALS: BP 183/71; PULSE 81; RESP 20; TEMP 97.8; O2SAT 96
[2016-12-13] MEDS: HEPARIN SODIUM - SQ 10,000 UNITS/ML VIAL SQ SCH ×2 (08:00→20:52)
[2016-12-13] MEDS ORDERED: PROPOFOL 200 MG/20 ML AMP IV PUSH ONE (10:15)
--- NOTE | 2016-12-13 10:25 | HHI.GIFU ---
Subjective Remarks Patient laying in bed comfortably, she said that no more bleeding since this morning, tolerated prep well. Objective Vitals I&O Vital Signs Date Time Temp Pulse Resp B/P (MAP) Pulse Ox O2 Delivery O2 Flow Rate FiO2 12/13/16 08:00 97.8 81 20 183/71 (108) 96 12/13/16 00:00 98.6 75 16 126/65 (85) 90 12/12/16 20:23 95 21 12/12/16 20:00 98.6 81 16 153/73 (99) 93 12/12/16 17:48 17 12/12/16 16:00 97.7 81 20 175/84 (114) 95 12/12/16 13:59 16 12/12/16 12:00 98.2 73 20 155/82 (106) 93 I/O 12/12/16 12/12/16 12/12/16 12/13/16 12/13/16 12/13/16 07:00 15:00 23:00 07:00 15:00 23:00 Intake Total 0 ml 240 ml 120 ml 250 ml Balance 0 ml 240 ml 120 ml 250 ml Intake Oral 0 ml 240 ml 120 ml Other 250 ml # Voids 2 4 # Bowel Movements 0 1 4 Laboratory Date/Time Source Procedure Growth Status 12/11/16 16:10 Urine Clean Catch Urine Culture - Preliminary Gram Negative Brien Resulted Physical Exam HEENT: Pupils round and reactive to light; normocephalic; atraumatic; no jaundice. Throat is clear. NECK: Neck is supple, no JVD, no lymphadenopathy. CHEST: Chest is clear to auscultation and percussion. CARDIAC: Regular rate and rhythm with no murmur gallop or rubs. ABDOMEN: Soft, nondistended, nontender; no hepatosplenomegaly; bowel sounds are present in all four quadrants. EXTREMITIES: No clubbing, cyanosis, or edema. SKIN: Normal; no rash; no jaundice. ADZING AND BORING MACHINE OPERATOR: No focal deficits; alert and oriented times three. Assessment and Plan Plan Patient's presented with rectal bleeding, never had colonoscopy or endoscopy before, upper endoscopy showed mild gastritis. Colonoscopy showed 3 lesions polypoid mass in the sigmoid I removed a large part of that but does still remaining lesion that I could not remove. Also there is a lesion in the descending colon that's flat no clear margins biopsy was done and marked with any, the third lesion was about 70 cm may be proximal transverse colon again no clear margins biopsy was done and a request place patient also has diverticular disease no sign of active bleeding at this time Recommendations Colorectal surgery consult I discussed the case with Dr. Kannan Johnson is going to see the patient today Follow up biopsy Colonoscopy in 1 year Clear liquid CEA Jarrett Curry MD Dec 13, 2016 10:25
--- NOTE | 2016-12-13 10:33 | GIPROC ---
[facility] [address] [place] [address], [id number] COLONOSCOPY PROCEDURE REPORT EXAM DATE: 12/13/2016 PATIENT NAME: Selene Hagen MR #: [id number] BIRTHDATE: 1945 ENDOSCOPIST: Jarrett Curry MD ORDER #: [id number] CALL CENTER SUPPORT CONSULTANT: Vesna Dorman and Juvencio Clement STATUS: inpatient INDICATIONS: The patient is a 71 yr old female here for a colonoscopy due to anal bleeding PROCEDURE PERFORMED: Colonoscopy with biopsy Colonoscopy with ablation Colonoscopy with polypectomy Submucosal injection, any substance MEDICATIONS: None and Per Anesthesia. PREP QUALITY: fair ESTIMATED BLOOD LOSS: None CONSENT: The patient understands the risks and benefits of the procedure and understands that these risks include, but are not limited to: sedation, allergic reaction, infection, perforation and/or bleeding. Alternative means of evaluation and treatment include, among others: physical exam, x-rays, and/or surgical intervention. The patient elects to proceed with this endoscopic procedure. medical equipment was checked for proper function. Hand hygiene and appropriate measures for infection prevention was taken. After the risks, benefits and alternatives of the procedure were thoroughly explained, Informed consent was verified, confirmed and timeout was successfully executed by the treatment team. A digital exam revealed no abnormalities of the rectum The Pentax EC-[id number] and [id number] endoscope was introduced through the anus and advanced to the cecum, which was identified by both the appendix and ileocecal valve. The instrument was then slowly withdrawn as the colon was fully examined. COLON FINDINGS: Flat lesion about 2-3 cm at 70 cm from the rectum biopsy was done and injection of ink to kashif it was done Flat lesion about 3-4 cm in the sigmoid biopsy was done and injection of ink to kashif it. Large polypoid mass in the sigmoid removed in multiple pieces but there was remaining tissue that I could not remove most likely high-grade polyp Mild diverticular disease 2 polyps in the rectum 1 cm each removed by a snare 2 polyps in the rectosigmoid area ablated with heat. Retroflexed views revealed no abnormalities The scope was then completely withdrawn from the patient and the procedure terminated. ADVERSE EVENTS: There were no complications. IMPRESSIONS: 1. Flat lesion about 2-3 cm at 70 cm from the rectum biopsy was done and injection of ink to kashif it was done Flat lesion about 3-4 cm in the sigmoid biopsy was done and injection of ink to kashif it. Large polypoid mass in the sigmoid removed in multiple pieces but there was remaining tissue that I could not remove most likely high-grade polyp Mild diverticular disease 2 polyps in the rectum 1 cm each removed by a snare 2 polyps in the rectosigmoid area ablated with heat 2. Retroflexed views revealed no abnormalities 3. Revealed no abnormalities of the rectum RECOMMENDATIONS: 1. Await biopsy results. Biopsy results will not be ready for 7-10 days. If you don't hear from us in two weeks, call our office for results. 2. I discussed the case with . later he is going to see the patient today most likely she will need left hemicolectomy with intraoperative colonoscopy CEA in the blood RECALL: Return 1 year Colonoscopy Jarrett Curry MD eSigned: Jarrett Curry MD 12/13/2016 10:33 AM cc: PATIENT NAME: Selene Hagen MR#: [id number]
--- NOTE | 2016-12-13 10:50 | GIPROC ---
[facility] [address] [place] [address], [id number] EGD PROCEDURE REPORT EXAM DATE: 12/13/2016 PATIENT NAME: Selene Hagen MR #: [id number] BIRTHDATE: 1945 ATTENDING: Jarrett Curry MD ORDER #: [id number] ALGORITHM DEVELOPER: Vesna Dorman and Juvencio Clement STATUS: inpatient INDICATIONS: The patient is a 71 yr old female here for an EGD due to hematochezia PROCEDURE PERFORMED: EGD w/ biopsy MEDICATIONS: None and Per Anesthesia. TOPICAL ANESTHETIC: none CONSENT: The patient understands the risks and benefits of the procedure and understands that these risks include, but are not limited to: sedation, allergic reaction, infection, perforation and/or bleeding. Alternative means of evaluation and treatment include, among others: physical exam, x-rays, and/or surgical intervention. The patient elects to proceed with this endoscopic procedure. medical equipment was checked for proper function. Hand hygiene and appropriate measures for infection prevention was taken. After the risks, benefits and alternatives of the procedure were thoroughly explained, Informed consent was verified, confirmed and timeout was successfully executed by the treatment team. The patient was anesthetized with topical anesthesia and the EC-[id number] (Pedi C) and [id number] endoscope was introduced through the mouth and advanced to the second portion of the duodenum. Retroflexed views revealed no abnormalities The gastroscope was then slowly withdrawn and removed. Mild gastritis biopsy from the antrum. The endoscopy was otherwise normal. ADVERSE EVENTS: There were no complications. IMPRESSIONS: 1. Mild gastritis biopsy from the antrum 2. Normal endoscopy otherwise 3. Retroflexed views revealed no abnormalities RECOMMENDATIONS: 1. Await biopsy results. Biopsy results will not be ready for 7-10 days. If you don't hear from us in two weeks, call our office for biopsy results. 2. Anti-reflux regimen 3. Avoid NSAIDS PATIENT CONDITION: stable DISPOSITION: Inpatient REPEAT EXAM: Return as needed for EGD Jarrett Curry MD eSigned: Jarrett Curry MD 12/13/2016 10:49 AM cc:
[2016-12-13] MEDS: PRAVASTATIN SOD 20 MG TAB PO SCH (11:08)
[2016-12-13] MEDS: ASPIRIN EC 81 MG TABEC PO SCH (11:08)
[2016-12-13] MEDS: FAMOTIDINE 20 MG TAB PO SCH ×2 (11:09→20:52)
[2016-12-13] MEDS: DILTIAZEM-CD 240 MG CAP ER PO SCH (11:09)
[2016-12-13] MEDS: SODIUM CHLORIDE 0.9% FLUSH 10 ML FLUSH IV FLUSH SCH ×2 (11:13→20:53)
[2016-12-13] MEDS: ACETAMINOPHEN/HYDROcodone 325 MG/7.5 MG TAB PO PRN ×2 (11:32→21:20)
[2016-12-13 12:00] VITALS: BP 149/81; PULSE 83; RESP 20; TEMP 96.5; O2SAT 96
--- NOTE | 2016-12-13 12:40 | HHI.PR ---
Subjective Remarks Patient seen and evaluated in follow-up for abdominal pain. Now found to have several lesions suspicious for malignancy. Patient's care plan discussed with GI, patient and spouse. Objective Vitals Vital Signs Date Time Temp Pulse Resp B/P (MAP) Pulse Ox O2 Delivery O2 Flow Rate FiO2 12/13/16 10:42 98.1 67 16 146/74 (98) 94 12/13/16 10:25 98.2 67 16 146/74 (98) 94 12/13/16 09:12 98.2 63 16 157/82 (107) 95 12/13/16 08:00 97.8 81 20 183/71 (108) 96 12/13/16 00:00 98.6 75 16 126/65 (85) 90 12/12/16 20:23 95 21 12/12/16 20:00 98.6 81 16 153/73 (99) 93 12/12/16 17:48 17 12/12/16 16:00 97.7 81 20 175/84 (114) 95 12/12/16 13:59 16 I/O 12/12/16 12/12/16 12/12/16 12/13/16 12/13/16 12/13/16 07:00 15:00 23:00 07:00 15:00 23:00 Intake Total 0 ml 240 ml 120 ml 250 ml Balance 0 ml 240 ml 120 ml 250 ml Intake Oral 0 ml 240 ml 120 ml Other 250 ml # Voids 2 4 # Bowel Movements 0 1 4 Result Diagram: 12/11/16 1620 12/11/16 1620 Objective Remarks GENERAL: This is a well-nourished, well-developed patient, in no apparent distress. CARDIOVASCULAR: Regular rate and rhythm without murmurs, gallops, or rubs. RESPIRATORY: Clear to auscultation. Breath sounds equal bilaterally. No wheezes , rales, or rhonchi. GASTROINTESTINAL: Abdomen soft, non-tender, nondistended. Normal active bowel sounds MUSCULOSKELETAL: Extremities without clubbing, cyanosis, or edema. NEURO: Alert & Oriented x4 to person, place, time, situation. Moves all ext x4 A/P Problem List: (1) Abdominal distention ICD Code: R14.0 - Abdominal distension (gaseous) Plan: Continue Pepcid, status post upper and lower endoscopy Now known to have colon lesion suspicious for malignancy Colorectal surgery consult pending Advance diet (2) Accelerated hypertension ICD Code: I10 - Essential (primary) hypertension Plan: Improved with pain control Judit Graham MD Dec 13, 2016 12:40
[2016-12-13 16:00] VITALS: BP 138/63; PULSE 79; RESP 20; TEMP 98.3; O2SAT 94
[2016-12-13] MEDS: MORPHINE SULFATE 4 MG/ML INJ IV PUSH PRN (17:36)
[2016-12-13 20:00] VITALS: BP 122/62; PULSE 83; RESP 12; TEMP 99; O2SAT 91
[2016-12-13 21:25] VITALS: O2SAT 95
[2016-12-14] VITALS: BP 110/38; PULSE 73; RESP 13; TEMP 98.1; O2SAT 96
[2016-12-14 00:30] VITALS: BP 128/64
[2016-12-14] MEDS: LEVOTHYROXINE SODIUM 100 MCG TAB PO SCH (05:47)
[2016-12-14 08:23] VITALS: BP 102/64; PULSE 80; RESP 20; TEMP 97.6; O2SAT 93
--- NOTE | 2016-12-14 08:51 | HHI.PR ---
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 - biopsies pending reviewed with pt - can be discharged home on reg diet - will see in office after bx final, and sched for elective outpt colectomy Objective - Vital Signs Date Time Temp Pulse Resp B/P (MAP) Pulse Ox O2 Delivery O2 Flow Rate FiO2 12/14/16 08:23 97.6 80 20 102/64 (77) 93 12/13/16 21:25 21 12/11/16 19:36 Room Air Result Diagram: 12/11/16 1620 12/11/16 1620 Objective Remarks PE alert Abd - soft, flat, no tympany, non-tender, no mass A/P Assessment and Plan Imp: Mult polypoid colonic tumors - path pending OK for dc - fu as outpt for sched either polypectomy or colectomy Raad West MD Dec 14, 2016 08:51
[2016-12-14] MEDS: FAMOTIDINE 20 MG TAB PO SCH (10:37)
[2016-12-14] MEDS: ASPIRIN EC 81 MG TABEC PO SCH (10:37)
[2016-12-14] MEDS: PRAVASTATIN SOD 20 MG TAB PO SCH (10:37)
[2016-12-14] MEDS: HEPARIN SODIUM - SQ 10,000 UNITS/ML VIAL SQ SCH (10:38)
[2016-12-14] MEDS: SODIUM CHLORIDE 0.9% FLUSH 10 ML FLUSH IV FLUSH SCH (10:40)
[2016-12-14] MEDS: ACETAMINOPHEN/HYDROcodone 325 MG/7.5 MG TAB PO PRN (10:48)
[2016-12-14] MEDS: DILTIAZEM-CD 240 MG CAP ER PO SCH (11:10)
--- NOTE | 2016-12-14 11:15 | HHI.DCPOC ---
Discharge Care Plan Diagnosis: (1) Colon tumor Goals to Promote Your Health * To prevent worsening of your condition and complications * To maintain your health at the optimal level Directions to Meet Your Goals Take your medications as prescribed Follow your dietary instruction Follow activity as directed Keep your appointments as scheduled Take your immunizations and boosters as scheduled If your symptoms worsen call your PCP, if no PCP go to Urgent Care Center or Emergency Room Smoking is Dangerous to Your Health. Avoid second hand smoke Call the 24-hour hour crisis hotline for domestic abuse at Judit Graham MD Dec 14, 2016 11:15
--- NOTE | 2016-12-14 11:17 | HHI.DS ---
Discharge Summary Admission Date Dec 13, 2016 at 12:40 Discharge Date: Dec 14, 2016 Admitting Diagnosis Chest Pain, Gastroenteritis (1) Abdominal distention ICD Code: R14.0 - Abdominal distension (gaseous) (2) Accelerated hypertension ICD Code: I10 - Essential (primary) hypertension Procedures upper and lower endoscopy Brief History - From Admission Written by Akbar Clark, acting as scribe for Dr. Graham on 12/12/16 at 12: 14. 71-year-old female with known history of hypertension, hyperlipidemia , TIA, hypothyroidism who presented to hospital because of rather long history of abdominal distention. Patient states that in May she had an episode of food poisoning from [employer] in which the patient states that she has never recovered from that. Ever since then she has had constant nausea, intermittent abdominal distention, 40 pound weight gain. Decreased appetite, however she does eat 4 bags of popcorn daily. 2 weeks ago she started developing abdominal discomfort again to include bloating, distention, nausea, vomiting, diarrhea. She indicates the pain is 6/10 on a pain scale. She went to her primary medical doctor who sent her for laboratory studies which were unremarkable. Because the patient continued to have abdominal pain, distention, which started pushing up on her diaphragm causing her to have chest discomfort which she describes as a tightness and pressure sensation from the left side to the right side. States that is 3/10 on a pain scale without any diaphoresis, shortness of breath, dyspnea, lightheadedness, radiation of discomfort. Patient states that the pain completely resolved after she was given morphine and nitroglycerin emergency department. Also the same time as noticed that the patient did have accelerated blood pressure 206/92. She had evaluation done emergency department with CT scan that did indicate gastroenteritis with possible ileus. Because the patient had chest discomfort with increased risk factors, it was recommended by the ER physician that the patient be evaluated. Upon seeing the patient today she is no longer have any vomiting, diarrhea that has resolved. She has passed gas one time today. 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 Henriquez her presenting symptoms, findings thus far and he indicated no need to pursue any cardiac stress testing at this time. He would recommend GI evaluation and discharge with outpatient follow-up. CBC/BMP: 12/11/16 1620 12/11/16 1620 Significant Findings Laboratory Tests Test 12/11/16 16:10 12/11/16 16:20 12/11/16 19:51 12/11/16 22:30 Urine Leukocyte Esterase SMALL (NEG) Urine WBC 6-8 /hpf (0-5) Urine Squamous Epithelial Cells 6-8 /hpf (0-5) Urine Bacteria MOD /hpf (NONE) Red Blood Count 3.97 MIL/MM3 (4.00-5.30) Hemoglobin 9.8 GM/DL (11.6-15.3) Hematocrit 30.6 % (35.0-46.0) Mean Corpuscular Volume 77.0 FL (80.0-100.0) Mean Corpuscular Hemoglobin 24.6 PG (27.0-34.0) Mean Corpuscular Hemoglobin Concent 31.9 % (32.0-36.0) Platelet Count 464 TH/MM3 (150-450) Total Protein 8.4 GM/DL (6.4-8.2) Potassium Level 3.3 MEQ/L (3.5-5.1) Estimat Glomerular Filtration Rate 61 ML/MIN (>89) Troponin I LESS THAN 0.02 NG/ML LESS THAN 0.02 NG/ML LESS THAN 0.02 NG/ML Test 12/13/16 14:41 Imaging Last Impressions Abdomen/Pelvis CT 12/11/16 1716 Signed Impressions: Service Date/Time: Sunday, December 11, 2016 17:35 - CONCLUSION: 1. Status post cholecystectomy. 2. Mildly nonspecific bowel gas pattern which could represent a mild ileus or gastroenteritis. Tripp Barry MD Chest X-Ray 12/11/16 1614 Signed Impressions: Service Date/Time: Sunday, December 11, 2016 16:49 - CONCLUSION: No acute disease. Tripp Barry MD PE at Discharge PE alert Abd - soft, flat, no tympany, non-tender, no mass Pt update on day of discharge Patient doing better today. Still somewhat tearful but overall good spirits and hopeful for further evaluations with Dr. West. Hospital Course This patient is a 71-year-old female who has been evaluated for abdominal pain and weight loss. She did have endoscopy which did show some colonic tumors which have been biopsied. Patient is recommended for colorectal surgery follow- up. She was seen by colorectal surgery and follow-up for pathology is recommended with elective resection considerations. Patient did well was discharged home. Pt Condition on Discharge: Good Discharge Disposition: Discharge Home Discharge Time: > 30 minutes Discharge Instructions DIET: Follow Instructions for: As Tolerated, No Restrictions Activities you can perform: Regular-No Restrictions Follow up Referrals: Appointment for Follow Up - 1 Week with Raad West MD Continued Medications: Alprazolam (Alprazolam) 1 Mg Tab 1 MG PO TID PRN for ANXIETY, TAB [address] (Aspirin EC) 81 Mg Tabdr 81 MG PO DAILY, TAB 0 Refills Citalopram (Citalopram) 20 Mg Tab 20 MG PO DAILY for Control Depression, #30 TAB 0 Refills Diltiazem ER 24 HR (Diltiazem ER 24 HR) 240 Mg Emilia 240 MG PO DAILY, #30 TAB 0 Refills Hydrocodone-Acetaminophen (Hydrocodone-Acetaminophen) 10-325 mg Tab 1 TAB PO 5 TIMES A DAY PRN for PAIN, TAB 0 Refills Levothyroxine (Synthroid) 100 Mcg Tab 100 MCG PO DAILY for Thyroid, #30 TAB 0 Refills Phenytoin Extended (Dilantin) 30 Mg Cap 90 MG PO TID for Control Seizures, #270 CAP 0 Refills Pravastatin (Pravastatin) 20 Mg Tab 20 MG PO DAILY for Cholesterol Management, #30 TAB 0 Refills Judit Graham MD Dec 14, 2016 11:17
[2016-12-14 12:11] VITALS: BP 140/63; PULSE 81; RESP 18; TEMP 98.2; O2SAT 97
--- NOTE | 2016-12-14 13:42 | MB ---
cc: LILIA TAN ANDREW H. M.D. DATE OF CONSULTATION 12/14/2016 REASON FOR CONSULTATION Multiple colonic polyps, possible colon cancer. HISTORY OF PRESENT ILLNESS Ms. Hagen is a 71-year-old female with multiple medical problems and a long history of bowel problems. She relates an episode in May of possible reaction to food eaten in a restaurant causing some abdominal distension and diarrhea. She has had decreased appetite and quite a bit of flatus since with bloating and some distension. Occasional, loose stool to the point of diarrhea. Feels like she has gas cramps at times. Most of the outpatient workup she reports as being unremarkable. The patient presented to the emergency room on this admission with complaints of additional abdominal pain, distension, and chest discomfort which she said she has had in the past as well. Blood pressure was elevated in the emergency room. Workup in the ER was pretty unremarkable except for a CT scan that showed some nonspecific thickening and possible ileus of her intestines. Since admission, she has undergone EGD and colonoscopy which have revealed several polypoid tumors of the colon some of which were very large and sessile being biopsied and having some piecemeal excisions. Final pathology is still pending. She has tolerated the procedure well and presently has had very minimal residual abdominal pain and does complain of chronic back troubles as well. Denies any rectal bleeding. Has not had any nausea or vomiting since the workup. The undersigned was asked to evaluate for possible either polypectomy or colectomy of the residual colonic polyps. Please see the history and physical for more complete past medical and surgical history. PERTINENT PHYSICAL This is a very pleasant well-developed female in no acute distress. HEENT: Remarkable for somewhat pale dry membranes, nonicteric sclera. NECK: A little stiff without adenopathy. CHEST: Relatively clear, symmetrically expanding. HEART: Regular rhythm. ABDOMEN: Soft and doughy, not really distended. Lower incisions are well-healed. No rebound or guarding or any masses noted. EXTREMITIES: Show no cyanosis or clubbing and maybe trace pedal edema. LABORATORY FINDINGS Hemoglobin of 9.8. Electrolytes pretty normal with normal liver function tests. Amylase and lipase were normal and BUN and creatinine 7 and 0.92. CEA level was 2.2. CT scan showed multiple loops of nondilated air containing small bowel with air-fluid levels. No masses or adenopathy was noted. IMPRESSION This is a 71-year-old female with multiple bowel problems and extensive an medical history found to have several large polyps of the sigmoid and left colon. Biopsies and some pieces of the polyps have been removed and pathology is presently pending. Reviewed at great length with the patient. At this point, she is pretty stable and could potentially be discharged home until final pathology report is back and either attempt at colonoscopic polypectomy to remove the remaining polyps or more likely segmental colectomy to remove the larger polyps and polypectomy sites as well. We will continue her on a regular diet for the time being, see her back in the after pathology report has been reviewed and then discuss final recommendations at that time. MD RODOLFO Alvarez/CINDA /8:53 AM /1:24 PM
== END 2016-12-14 12:46 | disposition home or self-care (01) | DRG 394 ==
LOC: PHED 15:09 → PHEDA 18:34 → PH3A 20:14 → OBSVTOIN 12-13 12:40 → PH5A 12-13 17:53
PROVIDERS: ADMIT Hospitalist; ATTEND Hospitalist
PROC: 0DBN8ZX Excision of Sigmoid Colon, Via Natural or Artificial Opening Endoscopic, Diagnostic (ICD-10-PCS; 2016-12-13)
PROC: 0DBN8ZZ Excision of Sigmoid Colon, Via Natural or Artificial Opening Endoscopic (ICD-10-PCS; 2016-12-13)
PROC: 0D5N8ZZ Destruction of Sigmoid Colon, Via Natural or Artificial Opening Endoscopic (ICD-10-PCS; 2016-12-13)
PROC: 0DBP8ZZ Excision of Rectum, Via Natural or Artificial Opening Endoscopic (ICD-10-PCS; 2016-12-13)
PROC: 0DB78ZX Excision of Stomach, Pylorus, Via Natural or Artificial Opening Endoscopic, Diagnostic (ICD-10-PCS; principal; 2016-12-13 09:30)
PROC: 0DBP8ZX Excision of Rectum, Via Natural or Artificial Opening Endoscopic, Diagnostic (ICD-10-PCS; 2016-12-13 09:30)
DX: K63.5 Polyp of colon (principal); K92.1 Melena; I10 Essential (primary) hypertension; K29.70 Gastritis, unspecified, without bleeding; E03.9 Hypothyroidism, unspecified; F41.9 Anxiety disorder, unspecified; E78.5 Hyperlipidemia, unspecified; K52.9 Noninfective gastroenteritis and colitis, unspecified; K57.30 Diverticulosis of large intestine without perforation or abscess without bleeding; Z87.891 Personal history of nicotine dependence; Z86.73 Personal history of transient ischemic attack (TIA), and cerebral infarction without residual deficits; I25.2 Old myocardial infarction
CPT/HCPCS: 71010; 74177; 80053; 81001; 82378; 82550; 83605; 83690; 84484; 85025; 85379; 85610; 85730; 87077; 87086; 87186; 88305; 88312; 93005; 96361; 96372; 96374; 96375; 96376; G0378; J1644; J2270; J2405; J7030; Q9967

== ENCOUNTER 2017-05-19 21:06 | Observation (INO) | payer MEDICARE ==
[~2017-05-19 21:06] MED LIST changes: +ALPR1TAB3 PO; +ASPI81TA23 PO; -CEPH-460 PO; +CITA20TA4 PO; +DILT1TAB4 PO; +HYDR-3583 PO; -PERC7.5T13 PO; -POTA-163 PO; -ZOFR4TAB3 SL
[2017-05-19 21:15] VITALS: PULSE 80; RESP 16
[2017-05-19 21:19] VITALS: BP 177/72; PULSE 76; RESP 16; O2SAT 96
--- NOTE | 2017-05-19 21:28 | PD ---
HPI Chief Complaint: Chest Pain Time Seen by Provider: 21:21 Travel History International Travel<30 days: No Contact w/Intl Traveler<30days: No Traveled to known affect area: No History of Present Illness HPI The patient is a 72 year old female who presents to the [facility] emergency department with a history of chest pain that began at 7:30PM. The pain radiates to the right jaw. She has had associated shortness of breath and nausea. She denies any diaphoresis. She reports having a history of NV in the past with a history of cardiac cath 5 years ago. She denies having a stent at that time. She is followed by Dr. Henriquez for her cardiac care. She cannot recall when she last had a stress test done. The patient reports that the chest pain is a pressure sensation. She reports that the pain lasts for 20 minutes at a time and then goes away and comes back again. On the third time that it recurred is when she decided to come to the emergency department. She reports that she does take a low-dose aspirin daily. She denies having any vomiting. She reports that she last moved her bowels earlier today. She denies having any recent fevers, cough, congestion, neck pain, diarrhea, urinary symptoms, or neurologic symptoms. [facility]LY [facility] Past Medical History Narrative Medical The patient's past medical history is significant for TIA, hypertension, hyperlipidemia, NV, hypothyroidism, hyperlipidemia. The patient's primary care physician is Dr. Hathaway. Hx Anticoagulant Therapy: Yes (ASA) Anxiety: Yes Cancer: No Cardiovascular Problems: Yes (MVP) High Cholesterol: Yes Cerebrovascular Accident: Yes (TIA X2) Diminished Hearing: No Endocrine: Yes Genitourinary: Yes (HX OF FREQUENT UTI'S) Immune Disorder: No Musculoskeletal: No Neurologic: Yes Psychiatric: Yes Reproductive: No Respiratory: Yes (PE AFTER SURGERY) Immunizations Current: Yes Thyroid Disease: Yes Past Surgical History Narrative Surgical The patient's past surgical history is significant for cholecystectomy, hysterectomy, cardiac catheterization, appendectomy. Appendectomy: Yes Cholecystectomy: Yes Gynecologic Surgery: Yes (UTERINE PROLAPSE) Hysterectomy: Yes Other Surgery: Yes Social History Alcohol Use: No Tobacco Use: No Substance Use: No Allergies-Medications (Allergen,Severity, Reaction): Coded Allergies: metronidazole (Verified Allergy, Unknown, DOESNT FLORINA, 12/11/16) Uncoded Allergies: UNKNOWN PAIN / NAUSEA COMBO (Allergy, Unknown, 12/11/16) Reported Meds & Prescriptions Reported Meds & Active Scripts Active Reported Diltiazem ER 24 HR 240 Mg Emilia 240 Mg PO DAILY Citalopram (Citalopram Hydrobromide) 20 Mg Tab 20 Mg PO DAILY Alprazolam 1 Mg Tab 1 Mg PO TID PRN Aspirin EC (Aspirin) 81 Mg Tabdr 81 Mg PO DAILY Hydrocodone-Acetaminophen 10-325 mg Tab 1 Tab PO 5 TIMES A DAY PRN Dilantin (Phenytoin Extended) 30 Mg Cap 90 Mg PO TID Pravastatin 20 Mg Tab 20 Mg PO DAILY Synthroid (Levothyroxine Sodium) 100 Mcg Tab 100 Mcg PO DAILY Review of Systems Except as stated in HPI: all other systems reviewed are Neg General / Constitutional: No: Fever Eyes: No: Visual changes HENT: No: Headaches Cardiovascular: Positive: Chest Pain or Discomfort, Dyspnea on exertion Respiratory: No: Shortness of Breath Gastrointestinal: Positive: Nausea, No: Vomiting, Diarrhea, Abdominal Pain Genitourinary: No: Dysuria Musculoskeletal: No: Pain Skin: No Rash Neurologic: No: Weakness Psychiatric: No: Depression Endocrine: No: Polydipsia Hematologic/Lymphatic: No: Easy Bruising Physical Exam Narrative General: The patient is a well-developed well-nourished female in no acute distress. Head and Neck exam: Head is normocephalic atraumatic. Eyes: EOMI, pupils are equal round and reactive to light. Nose: Midline septum with pink mucous membranes Mouth: Dentition unremarkable. Moist mucus membranes. Posterior oropharynx is not erythematous. No tonsillar hypertrophy. Uvula midline. Airway patent. Neck: No palpable lymphadenopathy. No nuchal rigidity. No thyromegaly. Cardiovascular: Regular rate and rhythm without murmurs, gallops, or rubs. Lungs: Clear to auscultation bilaterally. No wheezes, rhonchi, or rales. Abdomen: Soft, without tenderness to palpation in all 4 quadrants of the abdomen. No guarding, rebound, or rigidity. Normal bowel sounds are audible. No tenderness on palpation of McBurney's point. Negative Duarte sign. Extremities: No clubbing, cyanosis, or edema. 2+ pulses in all 4 extremities. No calf tenderness on palpation. Back: No spinous process tenderness to palpation. No costovertebral angle tenderness to palpation. Neurologic Exam: Grossly nonfocal. Skin Exam: No rash noted. Intact skin that is warm and dry. Data Data Last Documented VS Vital Signs Date Time Temp Pulse Resp B/P (MAP) Pulse Ox O2 Delivery O2 Flow Rate FiO2 05/19/17 21:55 99 Nasal Cannula 2.00 05/19/17 21:55 76 16 159/72 (101) Orders Orders Electrocardiogram (05/19/17 21:22) B-Type Natriuretic Peptide (05/19/17 21:22) Ckmb (Isoenzyme) Profile (05/19/17 21:22) Complete Blood Count With Diff (05/19/17 21:22) Comprehensive Metabolic Panel (05/19/17 21:22) Magnesium (Mg) (05/19/17 21:22) Prothrombin Time / Inr (Pt) (05/19/17 21:22) Act Partial Throm Time (Ptt) (05/19/17 21:22) Troponin I (05/19/17 21:22) Lipase (05/19/17 21:22) Chest, Single Ap (05/19/17 21:22) Ecg Monitoring (05/19/17 21:22) Bilateral Bp Monitoring (05/19/17 21:22) Iv Access Insert/Monitor (05/19/17 21:22) Oximetry (05/19/17 21:22) Oxygen Administration (05/19/17 21:22) Aspirin Chew (Aspirin Chew) (05/19/17 21:30) Nitroglycerin 2% Oint (Nitroglycerin 2% (05/19/17 21:30) Sodium Chloride 0.9% Flush (Ns Flush) (05/19/17 21:30) Nitroglycerin Sl (Nitrostat Sl) (05/19/17 21:30) Admit Order (Ed Use Only) (05/19/17 23:01) Labs Laboratory Tests Test 05/19/17 21:40 White Blood Count 9.1 TH/MM3 Red Blood Count 4.10 MIL/MM3 Hemoglobin 10.7 GM/DL Hematocrit 33.5 % Mean Corpuscular Volume 81.6 FL Mean Corpuscular Hemoglobin 26.0 PG Mean Corpuscular Hemoglobin Concent 31.9 % Red Cell Distribution Width 16.2 % Platelet Count 347 TH/MM3 Mean Platelet Volume 9.3 FL Neutrophils (%) (Auto) 47.7 % Lymphocytes (%) (Auto) 38.5 % Monocytes (%) (Auto) 10.4 % Eosinophils (%) (Auto) 2.0 % Basophils (%) (Auto) 1.4 % Neutrophils # (Auto) 4.4 TH/MM3 Lymphocytes # (Auto) 3.5 TH/MM3 Monocytes # (Auto) 1.0 TH/MM3 Eosinophils # (Auto) 0.2 TH/MM3 Basophils # (Auto) 0.1 TH/MM3 CBC Comment DIFF FINAL Differential Comment Prothrombin Time 9.5 SEC Prothromb Time International Ratio 0.9 RATIO Activated Partial Thromboplast Time 24.3 SEC Blood Urea Nitrogen 15 MG/DL Creatinine 1.03 MG/DL Random Glucose 89 MG/DL Total Protein 7.2 GM/DL Albumin 3.1 GM/DL Calcium Level 7.9 MG/DL Magnesium Level 2.2 MG/DL Alkaline Phosphatase 82 U/L Aspartate Amino Transf (AST/SGOT) 28 U/L Alanine Aminotransferase (ALT/SGPT) 18 U/L Total Bilirubin 0.2 MG/DL Sodium Level 137 MEQ/L Potassium Level 3.8 MEQ/L Chloride Level 105 MEQ/L Carbon Dioxide Level 24.8 MEQ/L Anion Gap 7 MEQ/L Estimat Glomerular Filtration Rate 53 ML/MIN Total Creatine Kinase 94 U/L Troponin I LESS THAN 0.02 NG/ML B-Type Natriuretic Peptide 72 PG/ML Lipase 125 U/L MDM Medical Decision Making Medical Screen Exam Complete: Yes Emergency Medical Condition: Yes Medical Record Reviewed: Yes Interpretation(s) Last Impressions Chest X-Ray 05/19/172121 Signed Impressions: Service Date/Time: Friday, May 19, 2017 21:33 - CONCLUSION: Mild atelectasis at the lung bases. Otherwise, no acute abnormality is identified. Luis Severino MD Differential Diagnosis Acute coronary syndrome, versus acid reflux, versus anxiety disorder, versus new onset congestive heart failure, versus pneumonia Narrative Course During the course of the patient's emergency department visit, the patient's history, examination, and differential diagnosis were reviewed with the patient. The patient was placed on a property assessment monitor with oximetry and frequent blood pressure monitoring. The patient had IV access obtained and blood work sent for analysis. The patient had an EKG done on arrival that shows a sinus rhythm heart rate is 73, no acute ST segment elevation or depression, T waves are inverted in V1, V2, QRS duration is 89 ms, QTc 422 ms. The patient was initially provided aspirin 243 mg p.o. 1, nitroglycerin 1 inch to the chest wall. The patient's laboratory studies were reviewed and remarkable for a white count of 9.1, hemoglobin 10.7, platelets 347 with monocytes 10.4. CMP is remarkable for creatinine 1.03, calcium 7.9, cardiac enzymes within normal limits, BNP 72, lipase 125, PT 9.5, PTT 24.3 Radiology studies were reviewed and remarkable for a chest x-ray that shows mild atelectasis at the lung bases, otherwise no acute abnormality is identified. The patient will be admitted to the chest pain center for rule out serial cardiac enzyme protocol followed by consideration of stress testing. The patient's results were discussed with the patient, including the plan of care. I explained that further testing and/ or monitoring is indicated based on the patient's history, examination, and/ or laboratory findings. Therefore, I recommended admission for additional evaluation. The patient expressed understanding and was agreeable with this plan. The patient was admitted to the hospital in stable condition and sent to a bed under the care of the chest pain center. Diagnosis Primary Impression: Chest pain, rule out acute myocardial infarction Admitting Information Admitting Physician Requests: Ami Melendez MD May 19, 2017 21:27
[2017-05-19] MEDS ORDERED: NITROGLYCERIN 2% OINT 1 GM PACKET TOP ONE (21:30)
[2017-05-19] MEDS ORDERED: SODIUM CHLORIDE 0.9% FLUSH 10 ML FLUSH IVF PRN (21:30)
[2017-05-19] MEDS ORDERED: ASPIRIN 81 MG CHEW TAB PO ONE (21:30)
[2017-05-19] MEDS ORDERED: NITROGLYCERIN 0.4 MG SL 25 TABS/BTL SL ONE (21:30)
--- NOTE | 2017-05-19 21:40 | RADRPT ---
EXAM DATE/TIME: 05/19/2017 21:33 [facility] COMPARISON: CHEST SINGLE AP, December 11, 2016, 16:49. INDICATIONS : Chest pain MEDICAL HISTORY : Cerebrovascular disease SURGICAL HISTORY : Appendectomy. Cholecystectomy.Hysterectomy ENCOUNTER: Initial ACUITY: 1 day PAIN SCORE: 2/10 LOCATION: Bilateral chest FINDINGS: Portable AP view of the chest demonstrates a normal-sized cardiac silhouette. There is mild atelectas is at the lung bases. There is calcification of the aorta. EKG leads overlie the patient. No pneumoth orax or pleural effusion is identified. The bones and soft tissues demonstrate no acute finding. CONCLUSION: Mild atelectasis at the lung bases. Otherwise, no acute abnormality is identified. Luis Severino MD on May 19, 2017 at 21:37 Board Certified Radiologist. This report was verified electronically.
[2017-05-19 21:55] VITALS: BP_SYST 157; BP_SYST 159; BP_DIAS 71; BP_DIAS 72; PULSE 76; PULSE 79; RESP 16; O2SAT 96
[2017-05-19 22:24] LABS: AUTOMATED NEUTROPHIL # 4.4 TH/MM3 (1.8-7.7); BASOPHIL # 0.1 TH/MM3 (0-0.2); BASOPHIL % 1.4 % (0.0-2.0); EOSINOPHIL # 0.2 TH/MM3 (0-0.4); HEMATOCRIT 33.5 % (35.0-46.0); HEMOGLOBIN 10.7 GM/DL (11.6-15.3); LYMPH % 38.5 % (9.0-44.0); LYMPHOCYTE # 3.5 TH/MM3 (1.0-4.8); MEAN CELL VOLUME 81.6 FL (80.0-100.0); MEAN CORPUSCULAR HGB CONC 31.9 % (32.0-36.0); MEAN PLATELET VOLUME 9.3 FL (7.0-11.0); MONO % 10.4 % (0.0-8.0); NEUT % 47.7 % (16.0-70.0); PLATELET COUNT 347 TH/MM3 (150-450); RED CELL DISTRIBUTION WIDTH 16.2 % (11.6-17.2); WHITE BLOOD COUNT 9.1 TH/MM3 (4.0-11.0)
[2017-05-19 22:36] LABS: INTERNATIONAL NORMALIZED RATIO 0.9 RATIO; PROTHROMBIN TIME - PATIENT 9.5 SEC (9.8-11.6)
[2017-05-19 22:53] LABS: ALBUMIN 3.1 GM/DL (3.4-5.0); ALT (GPT) 18 U/L (10-53); AST (GOT) 28 U/L (15-37); BICARBONATE 24.8 MEQ/L (21.0-32.0); BLOOD UREA NITROGEN 15 MG/DL (7-18); CALCIUM 7.9 MG/DL (8.5-10.1); CHLORIDE 105 MEQ/L (98-107); CREATININE 1.03 MG/DL (0.50-1.00); GLOMERULAR FILTRATION RATE 53 ML/MIN (>89); GLUCOSE,RANDOM 89 MG/DL (74-106); MAGNESIUM 2.2 MG/DL (1.5-2.5); SODIUM (NA) 137 MEQ/L (136-145)
[2017-05-19 22:56] LABS: ALKALINE PHOSPHATASE 82 U/L (45-117); TOTAL BILIRUBIN ADULT 0.2 MG/DL (0.2-1.0); TOTAL PROTEIN 7.2 GM/DL (6.4-8.2); TROPONIN I LESS THAN 0.02 NG/ML (0.02-0.05)
[2017-05-19] MEDS ORDERED: SODIUM CHLORIDE 0.9% FLUSH 10 ML FLUSH IV FLUSH PRN (23:15)
[2017-05-19] MEDS ORDERED: ONDANSETRON HCL 4 MG/2 ML VIAL IV PUSH PRN (23:15)
[2017-05-19 23:25] VITALS: O2SAT 96
[2017-05-19] MEDS: ACETAMINOPHEN 500 MG CPLT PO PRN (23:51)
[2017-05-20] VITALS (9 sets, daily range): BP systolic 159–190; BP diastolic 63–84; PULSE 71–102; RESP 16–18; TEMP 98–98.5; O2SAT 94–98
[2017-05-20] MEDS: ACETAMINOPHEN 500 MG CPLT PO PRN (04:10)
[2017-05-20 04:38] LABS: TROPONIN I LESS THAN 0.02 NG/ML (0.02-0.05)
[2017-05-20] MEDS ORDERED: ALPRAZolam 1 MG TAB PO ONE (06:00)
[2017-05-20] MEDS ORDERED: ACETAMINOPHEN/HYDROcodone 325 MG/10 MG TAB PO ONE ×2 (06:00→11:30)
[2017-05-20] MEDS ORDERED: NITROGLYCERIN 0.4 MG SL 25 TABS/BTL SL PRN (07:15)
[2017-05-20 07:38] LABS: TROPONIN I LESS THAN 0.02 NG/ML (0.02-0.05)
--- NOTE | 2017-05-20 07:57 | HHI.HP ---
HPI Primary Care Physician Emir Ureña MD Chief Complaint Chest pain History of Present Illness 72-year-old female with history of hypertension, hyperlipidemia, hypothyroidism , and former smoker presents emergency room for further evaluation of chest pain. Onset last evening. Location (her right jaw with radiation to make chest. Characterized as a squeeze. Duration one hour. No associated symptoms of nausea, vomiting, dyspnea, or diaphoresis. No known precipitating or relieving factors. Endorses similar pain in the past with total of 3 episodes of the past 5 years. 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 Perry. No recent stress testing. Review of Systems General: No fatigue,weakness, fever, chills, recent illness, or change in appetite. Endorses chronic back pain, otherwise has been in her general state of health. HEENT: No CARTER, no vision changes, no nasal congestion or drainage, no dysphasia CV: As stated above. Denies any further chest discomfort, reporting chest discomfort relieved itself prior to EMS arriving. RESP: No SOB, cough, or recent URI GI: No nausea, vomiting, bowel changes, diarrhea, constipation, pain, distention , melena, or blood in the stool. : No dysuria, urgency, frequency EXT: No lower leg edema, no paraesthesias MS: Chronic back pain, follows with pain management. No recent changes is chronic pain or change in ROM. NEURO: No change in memory,LOC, or motor/sensory deficits PSYCH: History or anxiety x20 years, reports taking xanax PRN, history of depression stable on current medication regimen. SKIN: No rashes, no concerning lesions Past Family Social History Allergies: Coded Allergies: metronidazole (Verified Allergy, Unknown, DOESNT RMEMBER, 12/11/16) Uncoded Allergies: UNKNOWN PAIN / NAUSEA COMBO (Allergy, Unknown, 12/11/16) Past Medical History Hypertension, hyperlipidemia, TIA, hypothyroidism, mitral valve prolapse, chronic back pain, anxiety, depression Past Surgical History Appendectomy, cholecystectomy, hysterectomy Reported Medications Reported Meds & Active Scripts Active Reported Diltiazem ER 24 HR 240 Mg Emilia 240 Mg PO DAILY Citalopram (Citalopram Hydrobromide) 20 Mg Tab 20 Mg PO DAILY Alprazolam 1 Mg Tab 1 Mg PO TID PRN Aspirin EC (Aspirin) 81 Mg Tabdr 81 Mg PO DAILY Hydrocodone-Acetaminophen 10-325 mg Tab 1 Tab PO 5 TIMES A DAY PRN Dilantin (Phenytoin Extended) 30 Mg Cap 90 Mg PO TID Pravastatin 20 Mg Tab 20 Mg PO DAILY Synthroid (Levothyroxine Sodium) 100 Mcg Tab 100 Mcg PO DAILY Active Ordered Medications Current Medications Medications (Trade) Dose Ordered Sig/Mamie Route Start Time Stop Time Status Last Admin (NS Flush) 2 ml UNSCH PRN IV FLUSH 05/19/17 23:15 (NS Flush) 2 ml BID IV FLUSH 05/20/17 09:00 (Tylenol) 500 mg Q4H PRN PO 05/19/17 23:15 05/20/17 04:10 (Zofran Inj) 4 mg Q6H PRN IV PUSH 05/19/17 23:15 05/19/17 23:56 (Nitrostat Sl) 0.4 mg Q5M PRN SL 05/20/17 07:15 (Aspirin) 325 mg DAILY PO 05/20/17 09:00 Social History Known hypertension, hyperlipidemia, and coronary artery disease (dx 5 year ago via cardiac cath, no intervention required). No known diabetes.\\ Former smoker. Denies any alcohol use. . Past cardiac testing 2013 Cardiac catheterization (Dr. Perry) reportedly no intervention required due to coronary artery disease not "severe enough." No recent stress testing. Follows with Dr. Henriquez every 6 months. Physical Exam Vital Signs Vital Signs Date Time Temp Pulse Resp B/P (MAP) Pulse Ox O2 Delivery O2 Flow Rate FiO2 05/20/17 06:01 98.2 90 16 190/82 (118) 97 05/20/17 05:20 20 05/20/17 02:49 98.5 71 16 180/84 (116) 97 05/20/17 02:37 05/20/17 01:00 76 16 159/63 (95) 98 Room Air 05/19/17 23:25 96 Nasal Cannula 2.00 05/19/17 21:55 99 Nasal Cannula 2.00 05/19/17 21:55 76 16 159/72 (101) 96 Nasal Cannula 2.00 05/19/17 21:55 79 159/72 (101) 157/71 (99) 05/19/17 21:19 76 16 177/72 (107) 96 Room Air 2/18/18 21:15 80 16 Physical Exam GENERAL: Alert WN, WD, NAD, pleasant, elderly female HEAD: NC, AT EYES: Sclera clear, conjunctiva without injection, pupils equal and round ENT: Mucous membranes pink and moist CV: RRR, without murmur, rub, gallop, click, no JVD, S1-S2 no S3-S4. RESP: Clear lungs throughout bilateral, no crackles, wheeze, rhonchi, symmetrical chest rise, nonlabored, able to speak in full sentences ABD: Soft, NT, ND, no masses, positive bowel tones EXT: Pulses +24, no dependent edema MS: Normal tone 4 extremities, nontender, no obvious deformities, full range of motion NEURO: CN II through CN XII grossly intact, motor strength 5/5 PSYCH: A+O 3, flat affect, appropriate speech,mood, insight and judgment SKIN: Normal turgor, normal texture, no lesions, no rashes, brisk cap refill, even hair distribution Laboratory Laboratory Tests Test 05/19/17 21:40 05/20/17 03:10 05/20/17 06:42 White Blood Count 9.1 Red Blood Count 4.10 Hemoglobin 10.7 Hematocrit 33.5 Mean Corpuscular Volume 81.6 Mean Corpuscular Hemoglobin 26.0 Mean Corpuscular Hemoglobin Concent 31.9 Red Cell Distribution Width 16.2 Platelet Count 347 Mean Platelet Volume 9.3 Neutrophils (%) (Auto) 47.7 Lymphocytes (%) (Auto) 38.5 Monocytes (%) (Auto) 10.4 Eosinophils (%) (Auto) 2.0 Basophils (%) (Auto) 1.4 Neutrophils # (Auto) 4.4 Lymphocytes # (Auto) 3.5 Monocytes # (Auto) 1.0 Eosinophils # (Auto) 0.2 Basophils # (Auto) 0.1 CBC Comment DIFF FINAL Differential Comment Prothrombin Time 9.5 Prothromb Time International Ratio 0.9 Activated Partial Thromboplast Time 24.3 Blood Urea Nitrogen 15 Creatinine 1.03 Random Glucose 89 Total Protein 7.2 Albumin 3.1 Calcium Level 7.9 Magnesium Level 2.2 Alkaline Phosphatase 82 Aspartate Amino Transf (AST/SGOT) 28 Alanine Aminotransferase (ALT/SGPT) 18 Total Bilirubin 0.2 Sodium Level 137 Potassium Level 3.8 Chloride Level 105 Carbon Dioxide Level 24.8 Anion Gap 7 Estimat Glomerular Filtration Rate 53 Total Creatine Kinase 94 52 56 Troponin I LESS THAN 0.02 LESS THAN 0.02 LESS THAN 0.02 B-Type Natriuretic Peptide 72 Lipase 125 Result Diagram: 05/19/17213905/19/172139 Imaging Last 48 hours Impressions Chest X-Ray 05/19/172121 Signed Impressions: Service Date/Time: Friday, May 19, 2017 21:33 - CONCLUSION: Mild atelectasis at the lung bases. Otherwise, no acute abnormality is identified. Luis Severino MD Course EKG Normal sinus rhythm, minimal ST depression v2-v6 Caprini VTE Risk Assessment Caprini VTE Risk Assessment: Mod/High Risk (score >= 2) Caprini Risk Assessment Model Point Value = 1 Point Value = 2 Point Value = 3 Point Value = 5 Age 41-60 Minor surgery BMI > 25 kg/m2 Swollen legs Varicose veins or History of unexplained or recurrent spontaneous Oral contraceptives or hormone replacement Sepsis (< 1 month) Serious lung disease, including pneumonia (< 1 month) Abnormal pulmonary function Acute myocardial infarction Congestive heart failure (< 1 month) History of inflammatory bowel disease Medical patient at bed rest Age 61-74 Arthroscopic surgery Major open surgery (> 45 min) Laparoscopic surgery (> 45 min) Malignancy Confined to bed (> 72 hours) Immobilizing plaster cast Central venous access Age >= 75 History of VTE Family history of VTE Factor V Leiden Prothrombin [id number] Lupus anticoagulant Anticardiolipin antibodies Elevated serum homocysteine Heparin-induced thrombocytopenia Other congenital or acquired thrombophilia Stroke (< 1 month) Elective arthroplasty Hip, pelvis, or leg fracture Acute spinal cord injury (< 1 month) Prophylaxis Regimen Total Risk Factor Score Risk Level Prophylaxis Regimen 0-1 Low Early ambulation 2 Moderate Order ONE of the following: *Sequential Compression Device (SCD) *Heparin 5000 units SQ BID 3-4 Higher Order ONE of the following medications: *Heparin 5000 units SQ TID *Enoxaparin/Lovenox 40 mg SQ daily (WT < 150 kg, CrCl > 30 mL/min) *Enoxaparin/Lovenox 30 mg SQ daily (WT < 150 kg, CrCl > 10-29 mL/min) *Enoxaparin/Lovenox 30 mg SQ BID (WT < 150 kg, CrCl > 30 mL/min) AND/OR *Sequential Compression Device (SCD) 5 or more Highest Order ONE of the following medications: *Heparin 5000 units SQ TID (Preferred with Epidurals) *Enoxaparin/Lovenox 40 mg SQ daily (WT < 150 kg, CrCl > 30 mL/min) *Enoxaparin/Lovenox 30 mg SQ daily (WT < 150 kg, CrCl > 10-29 mL/min) *Enoxaparin/Lovenox 30 mg SQ BID (WT < 150 kg, CrCl > 30 mL/min) AND *Sequential Compression Device (SCD) Assessment and Plan Assessment and Plan #1 Chest pain-admitted to chest pain center. Ruled out with 3 sets of EKGs, cardiac enzymes, and monitored on telemetry overnight. Seen and evaluated by Dr. Hermann Coronado. Dr. Coronado spoke with Dr. Henriquez to notify of planned chemical stress testing this morning. If testing unremarkable, plan to discharge home with follow up with Dr. Henriquez. If chemical stress testing abnormal, will call to notify Dr. Henriquez. Discussed this with patient who is agreeable to plan of care. #2 History of hypertension-continue diltiazem #3 History of hyperlipidemia-continue pravastatin #4 History of hypothyroidism-continue levothyroxine #5 History of depression-continue citalopram Saskia Mansfield May 20, 2017 07:57
[2017-05-20] MEDS ORDERED: SODIUM CHLORIDE 0.9% FLUSH 10 ML FLUSH IV FLUSH SCH (09:00)
[2017-05-20] MEDS ORDERED: ASPIRIN 325 MG TAB PO SCH (09:00)
[2017-05-20] MEDS ORDERED: CITALOPRAM HYDROBROMIDE 20 MG TAB PO SCH (09:15)
[2017-05-20] MEDS ORDERED: DILTIAZEM-CD 240 MG CAP ER PO SCH (09:15)
[2017-05-20] MEDS ORDERED: PRAVASTATIN SOD 20 MG TAB PO SCH (09:15)
[2017-05-20] MEDS ORDERED: LEVOTHYROXINE SODIUM 100 MCG TAB PO SCH (09:15)
[2017-05-20] MEDS ORDERED: ALPRAZolam 1 MG TAB PO PRN (09:45)
[2017-05-20] MEDS ORDERED: REGADENOSON INJ 0.4 MG/5 ML SYR ONE (10:12)
[2017-05-20] MEDS: PHENYTOIN SODIUM 30 MG CAP PO SCH ×2 (13:07→13:10)
--- NOTE | 2017-05-20 14:14 | RADRPT ---
EXAM DATE/TIME: 05/20/2017 10:00 [facility] COMPARISON: No previous studies available for comparison. INDICATIONS : Chest pain for 1 day. Angina. DOSE: 25.4 mCi Tc99m Myoview at stress. 8.5 mCi Tc99m Myoview at rest. 0.4 mg Lexiscan STRESS SYMPTOMS: Headache. EJECTION FRACTION: 56% MEDICAL HISTORY : Hypertension. SURGICAL HISTORY : Cholecystectomy. Hysterectomy. ENCOUNTER: Initial ACUITY: 1 day PAIN SCALE: 5/10 LOCATION: Bilateral chest TECHNIQUE: The patient underwent pharmacologic stress with infusion of prescribed dose. Continuous ECG tracing was monitored during stress. Gated SPECT imaging was performed after stress and conventional SPECT i maging was performed at rest. The examination was performed on a SPECT/CT scanner, both attenuation and non-corrected datasets were reviewed. FINDINGS: DISTRIBUTION: The maximum perfused segment at stress is in the lateral wall. PERFUSION STUDY: The pattern of perfusion at stress is within normal limits. GATED STUDY: There is intact wall motion and thickening without hypokinetic or dyskinetic segments. CONCLUSION: 1. No evidence for ischemia or infarction. 2. Intact wall motion with EF of 56%. RISK CATEGORY: Low (<1% Annual Mortality Rate) Boone Quintanilla MD on May 20, 2017 at 14:10 Board Certified Radiologist. This report was verified electronically.
--- NOTE | 2017-05-20 14:24 | HHI.DCPOC ---
Discharge Care Plan Diagnosis: (1) Atypical chest pain Goals to Promote Your Health * To prevent worsening of your condition and complications * To maintain your health at the optimal level Directions to Meet Your Goals Take your medications as prescribed Follow your dietary instruction Follow activity as directed Keep your appointments as scheduled Take your immunizations and boosters as scheduled If your symptoms worsen call your PCP, if no PCP go to Urgent Care Center or Emergency Room Smoking is Dangerous to Your Health. Avoid second hand smoke Call the 24-hour hour crisis hotline for domestic abuse at Saskia Mansfield May 20, 2017 14:24
--- NOTE | 2017-05-20 15:47 | EKG ---
Date Performed: 05/20/2017 Time Performed: 02:47:53 PTAGE: 72 years EKG: Sinus rhythm MINIMAL ST DEPRESSION BORDERLINE ECG PREVIOUS TRACING : 12/11/2016 22.19 Since previous tracing, no significant change noted DOCTOR: Hermann Coronado Interpretating Date/Time 05/20/2017 15:45:46
--- NOTE | 2017-05-20 15:48 | EKG ---
Date Performed: 05/19/2017 Time Performed: 21:20:43 PTAGE: 72 years EKG: Sinus rhythm NORMAL ECG PREVIOUS TRACING : 12/11/2016 22.19 Since previous tracing, no significant change noted DOCTOR: Hermann Coronado Interpretating Date/Time 05/20/2017 15:46:31
--- NOTE | 2017-05-20 15:58 | TR ---
Date Performed: 05/20/2017 Time Performed: 10:23:37 DOCTOR: Hermann Coronado DRUG LIST: CLINICAL HISTORY: CHEST PAIN REASON FOR TEST: CHEST PAIN REASON FOR ENDING: OBSERVATION: CONCLUSION: Lexiscan stress test was performed under standard four minute protocol. Radionuclid e was injected one minute prior to ending the test. No electrocardiographic abormalities were present to suggest ischemia. Nuclear imaging and interpretation are pending. COMMENTS:
== END 2017-05-20 16:21 | disposition home or self-care (01) ==
LOC: NEPC 21:06 → NEDA 23:02 → NEPGCP 05-20 02:32
DX: R07.89 Other chest pain (principal); I25.10 Atherosclerotic heart disease of native coronary artery without angina pectoris; I10 Essential (primary) hypertension; E78.5 Hyperlipidemia, unspecified; E03.9 Hypothyroidism, unspecified; M54.9 Dorsalgia, unspecified; G89.29 Other chronic pain; I34.1 Nonrheumatic mitral (valve) prolapse; I25.2 Old myocardial infarction; J98.11 Atelectasis; F32.9 Major depressive disorder, single episode, unspecified; Z79.82 Long term (current) use of aspirin; Z86.73 Personal history of transient ischemic attack (TIA), and cerebral infarction without residual deficits; Z87.440 Personal history of urinary (tract) infections; Z87.891 Personal history of nicotine dependence; Z90.710 Acquired absence of both cervix and uterus
CPT/HCPCS: 71045; 78452; 80053; 82550; 83690; 83735; 83880; 84484; 85025; 85610; 85730; 93005; 93017; 96374; 99285; A9502; G0378; J2405; J2785